=== PATIENT | male | born 1980 | race Caucasian/White ===

== ENCOUNTER 2018-06-29 11:55 | Outpatient (CLI) | payer MEDICAID, SELFPAY ==
[2018-06-29] MEDS: Omnipaque 350 MG/ML 50 ML BTL IJ (12:25)
[2018-06-29] MEDS: Breeza Beverage 473 ML BTL PO ×2 (12:26)
[2018-06-29 13:08] LABS: HCT 43.8 % (40.0-50.0); HGB 14.1 g/dL (13.5-17.5); Mean Corp. HGB Concentration 32.2 g/dL (32.0-36.0); Mean Corpuscular Hemoglobin 29.9 pg (27.0-33.0); Mean Corpuscular Volume 92.8 fL (80-95); Mean Platelet Volume 9.5 fL (8.0-11.0); Platelet Count 218 x1000/uL (130-400); RBC 4.72 m/cumm (4.50-6.00); RBC Distribution Width 12.8 % (11.8-14.1); White Blood Cell Count 5.95 k/cumm (4.4-10.8)
[2018-06-29 13:14] LABS: ALT 39 U/L (12-78); AST 21 U/L (15-37); Alkaline Phosphatase 88 U/L (46-116); Anion Gap 9.2 mmol/L (3-11); BUN 19 mg/dL (7-18); Bilirubin, Total 0.4 mg/dL (0.2-1.0); CO2 28.8 mmol/L (21.0-32.0); CREATININE 1.12 mg/dL (0.70-1.30); Calcium 8.9 mg/dL (8.5-10.1); Chloride 101 mmol/L (98-107); Glucose 96 mg/dL (70-100); Potassium 4.1 mmol/L (3.5-5.1); Sodium 139 mmol/L (136-145)
[2018-06-29] MEDS: Omnipaque 350 MG/ML 100 ML BTL IJ (13:38)
[2018-06-29] MEDS: Normal Saline Flush 10 ML SYR IVP (13:40)
--- NOTE | 2018-06-29 13:40 | DI.CT_ITS ---
SYMPTOMS/DIAGNOSIS: RIGHT LOWER QUADRANT ABDOMINAL PAIN, R10.31, ? APPENDICITIS CT SCAN OF THE ABDOMEN AND PELVIS: CT scan of the abdomen and pelvis was performed following the uneventful administration of intravenous and oral contrast material. There are no priors for comparison. The lung bases are clear. The liver is normal in size. No suspicious hepatic masses seen. The portal, superior mesenteric and splenic veins are patent. The gallbladder is negative. There is no biliary ductal dilatation. The pancreas, spleen and adrenal glands are unremarkable, as are the kidneys, ureters and bladder. Reproductive organs are unremarkable. The bowel shows no evidence of obstruction or inflammation. There is no evidence of an acute appendicitis present. The abdominal aorta is of normal caliber. No significant abdominal or pelvic adenopathy, ascites or pneumoperitoneum is present. There is unilateral spondylolysis at L4. No significant spondylolisthesis is seen. IMPRESSION: No evidence of an acute abdomen. No findings to suggest an acute appendicitis.
== END 2018-06-29 12:15 ==
PROVIDERS: PCP Physician Assistant Medical; Visit Provider Physician Assistant Medical
DX: R10.31 Right lower quadrant pain (principal)
CPT/HCPCS: 80053; 85027; 74177; J3490; Q9967

== ENCOUNTER 2018-07-15 20:10 | Emergency (ER) | payer MEDICAID, SELFPAY ==
[2018-07-15 20:13] VITALS: BP 140/89; PULSE 76; RESP 17; TEMP 36.8; O2SAT 97
--- NOTE | 2018-07-15 20:25 | ED.GENADUL_ITS ---
Discharge Plan Disposition Patient Disposition: HOME Condition: Stable Discharge Details Chief Complaint: Sorethroat Clinical Impression: Acute sore throat Primary Care Provider: Dixon Sewell V ED Provider: Adrian Franco Home Meds and New Rx's Prescriptions: No Action methadone 10 mg/mL Concentrate 100 mg PO DAILY RF: 0 Discharge Instructions Additional Instructions: follow up with your primary care provider this week if symptoms continue if you have inability to swallow liquids or difficulty breathing return to the emergency department for reevaluation you can take 1000mg tylenol and 600mg ibuprofen every 6 hours for pain as needed Medical Decision Making Pt states that this morning he started with a sore throat and feeling itching in his ears, no fevers or other symptoms. He is speaking in full sentences on exam swallowing normally with no stridor or drooling. 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 Will check for strep though I suspect symptoms are either viral or seasonal allergies. HAs normal ear exam bilaterally strep negative, will d/c and return precautions given Differential Diagnosis allergies, strep HPI General Mode of arrival: ambulatory . Date/Time Provider Initiated Documentation: 07/15/18 20:18 . Limitations to Documentation: no limitations . Information obtained by: patient . History of Present Illness 38 year old M presents to the emergency department with the chief complaint of sore throat, described as mild, Quality is described as aching, and is localized to the mouth (throat). Patient started experiencing this day(s) (1) and it has been constant. No relieving factors improve symptom(s), No exacerbating factors reported . Patient did receive the following treatments prior to arrival, none Related Data Home Medications Medication Instructions Recorded Confirmed methadone 100 mg PO DAILY 07/15/18 07/15/18 Allergies Allergy/AdvReac Type Severity Reaction Status Date / Time codeine Allergy Itching Unverified 07/15/18 20:17 General Stated Complaint: Sorethroat TERRY: 4 Review of Systems Review of Systems All systems reviewed & are unremarkable except as noted in HPI and below Constitutional Denies chills, Denies fever(s) and Denies weakness Cardiovascular Denies chest pain and Denies dyspnea Respiratory Denies cough and Denies dyspnea Gastrointestinal Denies abdominal pain, Denies nausea and Denies vomiting Integumentary/Breasts Denies rash Neurologic Denies weakness Endocrine Denies cold intolerance and Denies heat intolerance PFSH Social History Smoking/Tobacco Use Status: Current every day Tobacco Type: e-cigarettes Alcohol Intake: current Alcohol Intake frequency: a few times a week Alcohol type: other Drug use: Never Do you feel safe at home: Yes Do you feel safe in your relationship?: Yes Exam Const General: no acute distress Orientation: alert HENMT Head: normal to inspection Ears: external ears normal General nose exam: external nose normal Mouth: moist mucous membranes Eyes General: appearance normal, both eyes and all related structures Neck Neck: normal visual inspection Resp Effort & Inspection: normal respiratory effort and able to speak in complete sentences Cardio Rate: regular rate Skin General skin exam: no rashes or lesions noted Neuro General: alert and oriented x3 Extrem General: normal to inspection Psych Mental Status: mental status grossly normal Course Vital Signs Temperature 36.8 C 07/15/18 20:13 Pulse 76 07/15/18 20:13 Respiratory Rate 17 07/15/18 20:13 Blood Pressure 140/89 07/15/18 20:13 Pulse Oximetry 97 07/15/18 20:13 Temperature 36.8 C 07/15/18 20:13 Temperature Source Skin 07/15/18 20:13 Pulse 76 07/15/18 20:13 Respiratory Rate 17 07/15/18 20:13 Respiratory Effort Non-Labored 07/15/18 20:16 Blood Pressure 140/89 07/15/18 20:13 Blood Pressure Position Sitting 07/15/18 20:13 Pulse Oximetry 97 07/15/18 20:13 Oxygen Delivery Method Room Air 07/15/18 20:13 Oxygen Flow Rate 0 07/15/18 20:13 Pain Level 2 07/15/18 20:13
== END 2018-07-15 20:36 | disposition home or self-care (01) ==
PROVIDERS: Emergency Provider Emergency Medicine; PCP Physician Assistant Medical
DX: J02.9 Acute pharyngitis, unspecified (principal); F17.210 Nicotine dependence, cigarettes, uncomplicated
CPT/HCPCS: 87880; 99282

== ENCOUNTER 2018-07-17 12:46 | Emergency (ER) | payer MEDICAID, SELFPAY ==
[2018-07-17 13:01] VITALS: BP 121/72; PULSE 77; RESP 12; TEMP 36.6; O2SAT 97
--- NOTE | 2018-07-17 14:04 | W.ED.GENAD ---
Discharge Plan Disposition Patient Disposition: HOME Discharge Details Chief Complaint: Sorethroat Primary Care Provider: Dixon Sewell V ED Provider: Carlos Eduardo Matthews Home Meds and New Rx's Prescriptions: New amoxicillin 500 mg capsule 500 mg PO BID 10 Days Qty: 20 RF: 0 Continued methadone 10 mg/mL Concentrate 100 mg PO DAILY RF: 0 Discharge Data Discharge Date/Time-TO BE ENTERED AT DEPARTURE: 07/17/18 14:14 Medical Decision Making Sore throat 3 days not improving. Trying [id number] medications. Physical exam shows significantly erythematous oropharynx and anterior cervical lymphadenopathy otherwise no nasal congestion no cough clear lung sounds no other physical exam findings noted. 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 Rapid strep testing shows positive result. Patient placed on amoxicillin twice daily for 10 days and return precautions were discussed. After discussion of diagnosis and plan of care patient has no further needs, questions, or concerns and states clear understanding to return to the emergency department for any worsening symptoms. HPI General Mode of arrival: ambulatory. Date/Time Provider Initiated Documentation: 07/17/18 14:04. Limitations to Documentation: no limitations. Information obtained by: patient, RN notes reviewed and old records reviewed. History of Present Illness 38 year old M presents to the emergency department with the chief complaint of sore throat , described as moderate, with intensity rated at 7. Quality is described as aching, and is localized to the mouth (sore throat). Patient started experiencing this day(s) (3) and it has been constant. No relieving factors improve symptom(s), Patient did receive the following treatments prior to arrival, NSAID Related Data Home Medications Medication Instructions Recorded Confirmed methadone 100 mg PO DAILY 07/15/18 07/17/18 amoxicillin 500 mg PO BID 10 Days #20 cap 07/17/18 Previous Rx's Medication Instructions Recorded amoxicillin 500 mg PO BID 10 Days #20 cap 07/17/18 Allergies Allergy/AdvReac Type Severity Reaction Status Date / Time codeine Allergy Itching Unverified 07/17/18 13:04 General Stated Complaint: Sorethroat TERRY: 4 Review of Systems Constitutional Reports chills, Reports fever(s), Denies headache(s) and Reports malaise ENT Denies change in voice, Denies dysphagia, Denies otalgia, Denies headache(s), Denies hoarseness, Denies lip swelling, Denies mouth lesions, Reports nasal congestion, Reports odynophagia, Reports sore throat, Denies throat swelling and Denies tongue swelling Cardiovascular Denies chest pain Respiratory Denies chest congestion and Denies cough Gastrointestinal Denies dysphagia and Reports odynophagia Neurologic Denies headache(s) Allergic/Immunologic Denies lip swelling, Denies throat swelling and Denies tongue swelling PFS Social History Smoking/Tobacco Use Status: Current every day Tobacco Type: e-cigarettes Alcohol Intake: current Alcohol Intake frequency: a few times a week Alcohol type: other Drug use: Never Do you feel safe at home: Yes Do you feel safe in your relationship?: Yes Exam Const General: cooperative, healthy appearing, comfortable, no acute distress and not ill appearing Orientation: alert, awake and oriented x3 HENMT Head: normal to inspection and normocephalic Ears: hearing grossly normal bilaterally, external ears normal, TM's normal bilaterally and mastoids normal General nose exam: external nose normal and nares normal Face and sinus: normal facial exam and sinuses nontender Mouth: oral mucosae normal, lip normal, tongue normal, no audible dysphonia, no drooling and no trismus Throat: uvula midline, abnormal tonsil bilaterally erythema and hypertrophy 1+, no peritonsillar masses and posterior oropharynx abnormal erythema Neck Neck: normal visual inspection, full ROM, no meningeal signs and lymphadenopathy (Anterior cervical) Resp Effort & Inspection: normal respiratory effort, able to speak in complete sentences and no stridor Auscultation: clear to auscultation bilaterally Cardio Rate: regular rate Rhythm: regular rhythm Heart Sounds: S1 normal and S2 normal Skin General skin exam: no rashes or lesions noted Course Vital Signs Temperature 36.6 C 07/17/18 13:01 Pulse 77 07/17/18 13:01 Respiratory Rate 12 07/17/18 13:01 Blood Pressure 121/72 07/17/18 13:01 Pulse Oximetry 97 07/17/18 13:01 Temperature 36.6 C 07/17/18 13:01 Temperature Source Temporal Artery Scan 07/17/18 13:01 Pulse 77 07/17/18 13:01 Respiratory Rate 12 07/17/18 13:01 Respiratory Effort Non-Labored 07/17/18 13:03 Blood Pressure 121/72 07/17/18 13:01 Blood Pressure Position Sitting 07/17/18 13:01 Pulse Oximetry 97 07/17/18 13:01 Oxygen Delivery Method Room Air 07/17/18 13:01 Oxygen Flow Rate 0 07/17/18 13:01 Pain Level 7 07/17/18 13:01 Lab/Test Results Lab/Test Results: POC Strep Test-[facility](Rapid) Start: 07/17/18 13:05 Freq: Status: Active Protocol: Document 07/17/18 13:41 TB (Rec: 07/17/18 13:41 TB [id number]) Strep test-[facility](Rapid)-POC POC-Strep test-[facility] (Rapid) Positive POC-Strep test-[facility] (Rapid) Positive
[2018-07-17] MEDS: Amoxicillin 500 MG CAP PO (14:06)
--- NOTE | 2018-07-17 14:07 | ED.GENADUL_ITS ---
Discharge Plan Disposition Patient Disposition: HOME Discharge Details Chief Complaint: Sorethroat Primary Care Provider: Dixon Sewell V ED Provider: Carlos Eduardo Matthews Home Meds and New Rx's Prescriptions: New amoxicillin 500 mg capsule 500 mg PO BID 10 Days Qty: 20 RF: 0 Continued methadone 10 mg/mL Concentrate 100 mg PO DAILY RF: 0 Discharge Data Discharge Date/Time-TO BE ENTERED AT DEPARTURE: 07/17/18 14:14 Medical Decision Making Sore throat 3 days not improving. Trying dxsl-uus-kuttydy medications. Physica l exam shows significantly erythematous oropharynx and anterior cervical lymphadenopathy otherwise no nasal congestion no cough clear lung sounds no other physical exam findings noted. I do feel that this may be streptococcal in nature and [employer] plans staff officer initiated protocol for rapid strep testing. Rapid strep testing shows positive result. Patient placed on amoxicillin twice daily for 10 days and return precautions were discussed. After discussion of diagnosis and plan of care patient has no further needs, questions, or concerns and states clear understanding to return to the emergency department for any worsening symptoms. HPI General Mode of arrival: ambulatory . Date/Time Provider Initiated Documentation: 07/17/18 14:04 . Limitations to Documentation: no limitations . Information obtained by: patient, RN notes reviewed and old records reviewed . History of Present Illness 38 year old M presents to the emergency department with the chief complaint of sore throat , described as moderate, with intensity rated at 7. Quality is described as aching, and is localized to the mouth (sore throat). Patient started experiencing this day(s) (3) and it has been constant. No relieving factors improve symptom(s), Patient did receive the following treatments prior to arrival, NSAID Related Data Home Medications Medication Instructions Recorded Confirmed methadone 100 mg PO DAILY 07/15/18 07/17/18 amoxicillin 500 mg PO BID 10 Days #20 cap 07/17/18 Previous Rx's Medication Instructions Recorded amoxicillin 500 mg PO BID 10 Days #20 cap 07/17/18 Allergies Allergy/AdvReac Type Severity Reaction Status Date / Time codeine Allergy Itching Unverified 07/17/18 13:04 General Stated Complaint: Sorethroat TERRY: 4 Review of Systems Constitutional Reports chills, Reports fever(s), Denies headache(s) and Reports malaise ENT Denies change in voice, Denies dysphagia, Denies otalgia, Denies headache(s), Denies hoarseness, Denies lip swelling, Denies mouth lesions, Reports nasal congestion, Reports odynophagia, Reports sore throat, Denies throat swelling and Denies tongue swelling Cardiovascular Denies chest pain Respiratory Denies chest congestion and Denies cough Gastrointestinal Denies dysphagia and Reports odynophagia Neurologic Denies headache(s) Allergic/Immunologic Denies lip swelling, Denies throat swelling and Denies tongue swelling COUNT INCLUDES THE [facility] Social History Smoking/Tobacco Use Status: Current every day Tobacco Type: e-cigarettes Alcohol Intake: current Alcohol Intake frequency: a few times a week Alcohol type: other Drug use: Never Do you feel safe at home: Yes Do you feel safe in your relationship?: Yes Exam Const General: cooperative, healthy appearing, comfortable, no acute distress and not ill appearing Orientation: alert, awake and oriented x3 HENMT Head: normal to inspection and normocephalic Ears: hearing grossly normal bilaterally, external ears normal, TM's normal bilaterally and mastoids normal General nose exam: external nose normal and nares normal Face and sinus: normal facial exam and sinuses nontender Mouth: oral mucosae normal, lip normal, tongue normal, no audible dysphonia, no drooling and no trismus Throat: uvula midline, abnormal tonsil bilaterally erythema and hypertrophy 1+, no peritonsillar masses and posterior oropharynx abnormal erythema Neck Neck: normal visual inspection, full ROM, no meningeal signs and lymphadenopathy (Anterior cervical) Resp Effort & Inspection: normal respiratory effort, able to speak in complete sentences and no stridor Auscultation: clear to auscultation bilaterally Cardio Rate: regular rate Rhythm: regular rhythm Heart Sounds: S1 normal and S2 normal Skin General skin exam: no rashes or lesions noted Course Vital Signs Temperature 36.6 C 07/17/18 13:01 Pulse 77 07/17/18 13:01 Respiratory Rate 12 07/17/18 13:01 Blood Pressure 121/72 07/17/18 13:01 Pulse Oximetry 97 07/17/18 13:01 Temperature 36.6 C 07/17/18 13:01 Temperature Source Temporal Artery Scan 07/17/18 13:01 Pulse 77 07/17/18 13:01 Respiratory Rate 12 07/17/18 13:01 Respiratory Effort Non-Labored 07/17/18 13:03 Blood Pressure 121/72 07/17/18 13:01 Blood Pressure Position Sitting 07/17/18 13:01 Pulse Oximetry 97 07/17/18 13:01 Oxygen Delivery Method Room Air 07/17/18 13:01 Oxygen Flow Rate 0 07/17/18 13:01 Pain Level 7 07/17/18 13:01 Lab/Test Results Lab/Test Results: POC Strep Test-[facility](Rapid) Start: 07/17/18 13:05 Freq: Status: Active Protocol: Document 07/17/18 13:41 TB (Rec: 07/17/18 13:41 TB [id number]) Strep test-[facility](Rapid)-POC POC-Strep test-[facility] (Rapid) Positive POC-Strep test-[facility] (Rapid) Positive
== END 2018-07-17 14:14 | disposition home or self-care (01) ==
PROVIDERS: Emergency Provider Nurse Practitioner Family; PCP Physician Assistant Medical
DX: J02.0 Streptococcal pharyngitis (principal); F17.210 Nicotine dependence, cigarettes, uncomplicated
CPT/HCPCS: 87880; 99283

== ENCOUNTER 2019-03-13 12:05 | Outpatient (CLI) | payer SELFPAY ==
--- NOTE | 2019-03-13 12:06 | DI.RAD_ITS ---
EXAM: XR CHEST 2V PA LATERAL XR CHEST 2V PA LATERAL CLINICAL HISTORY: CHEST WALL PAIN R07.89 CHEST WALL PAIN R07.89 TECHNIQUE: 2D digital imaging was performed. COMPARISON: CHEST 2 VIEWS PA,LAT from 02/28/2016 FINDINGS: The heart is not enlarged. The lungs are clear and well expanded. No pleural effusion seen. Mediastin al contours appear intact. IMPRESSION: Normal chest
[2019-03-13 12:59] LABS: Anion Gap 9.4 mmol/L (3-11); BUN 17 mg/dL (7-18); CO2 28.6 mmol/L (21.0-32.0); CREATININE 1.07 mg/dL (0.70-1.30); Chloride 102 mmol/L (98-107); Glucose 90 mg/dL (74-106); Potassium 4.3 mmol/L (3.5-5.1); Sodium 140 mmol/L (136-145); Troponin I < 0.05 ng/Ml (<0.06)
== END 2019-03-13 12:25 ==
PROVIDERS: PCP Physician Assistant Medical; Visit Provider Nurse Practitioner Family
DX: R07.89 Other chest pain (principal)
CPT/HCPCS: 36415; 80048; 71046; 84484

== ENCOUNTER 2020-07-23 16:10 | Emergency (ER) | payer SELFPAY ==
[2020-07-23 16:14] VITALS: BP 126/105; PULSE 68; RESP 18; TEMP 37.4; O2SAT 96
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
[2020-07-23 17:04] LABS: Abs Immature Grans 0.02 10^3/uL (0.0-0.06); Absolute Basophil Count 0.02 10^3/uL (0.0-0.2); Absolute Eosinophil Count 0.07 10^3/uL (0.0-0.7); Absolute Lymphocyte Count 1.91 10^3/uL (1.2-3.4); Absolute Neutrophil Count 2.77 10^3/uL (1.2-6.7); Basophils % 0.4; Eosinophils % 1.3; HCT 41.8 % (40.0-50.0); HGB 14.1 g/dL (13.5-17.5); Immature Grans % 0.4; Lymphocytes % 36.8; MCH 32.6 pg (27.0-33.0); MCHC 33.7 % (32.0-36.0); MCV 96.5 fL (80-95); MPV 9.4 fL (8.0-11.0); Monocytes % 7.7; Neutrophils % 53.4; Nucleated RBC 0 %; Platelet Count 198 10^3/uL (130-400); RBC 4.33 10^6/uL (4.36-5.78); RDW 12.4 % (11.8-14.1); RDW-SD 43.1 fL; WBC 5.19 10^3/uL (4.4-10.8)
[2020-07-23 17:14] LABS: ALT 125 U/L (16-63); AST 49 U/L (15-37); Alkaline Phosphatase 133 U/L (46-116); Anion Gap 10.8 mmol/L (3-11); BUN 16 mg/dL (7-18); Bilirubin, Total 0.2 mg/dL (0.2-1.0); CO2 28.2 mmol/L (21.0-32.0); CREATININE 1.2 mg/dL (0.70-1.30); Calcium 9.5 mg/dL (8.5-10.1); Chloride 103 mmol/L (98-107); Glucose 115 mg/dL (74-106); Lipase 79 U/L (73-393); Sodium 142 mmol/L (136-145)
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
[2020-07-23 17:21] LABS: Bilirubin Negative (Negative); Blood Negative (Negative); Clarity Clear (Clear); Glucose Negative (Negative); Ketones Negative (Negative); Leukocyte Esterase Negative (Negative); Nitrite Negative (Negative); Specific Gravity >= 1.030 (1.005-1.025)
[2020-07-23 17:44] VITALS: BP 126/105; PULSE 68; RESP 18; TEMP 37.4; O2SAT 96
== END 2020-07-23 17:43 | disposition home or self-care (01) ==
PROVIDERS: Emergency Provider Physician Assistant; PCP Physician Assistant Medical
DX: R07.82 Intercostal pain (principal); R74.01 Elevation of levels of liver transaminase levels; R74.8 Abnormal levels of other serum enzymes
CPT/HCPCS: 36415; 80053; 83690; 99284; 71046; 71100; 81003; 85025

== ENCOUNTER 2022-04-20 17:17 | Outpatient (REF) | payer MEDICAID, SELFPAY ==
[2022-04-20 19:15] LABS: ALT 71 U/L (16-63); AST 35 U/L (15-37); Albumin 4.3 g/dL (3.4-5.0); Alkaline Phosphatase 94 U/L (46-116); Anion Gap 10.3 mmol/L (3-11); BUN 18 mg/dL (7-18); Bilirubin, Total 0.2 mg/dL (0.2-1.0); CO2 28.7 mmol/L (21.0-32.0); CREATININE 1.1 mg/dL (0.70-1.30); Calcium 9.8 mg/dL (8.5-10.1); Calculated LDL 121 mg/dL (<100); Chloride 104 mmol/L (98-107); Cholesterol 227 mg/dL (<200); Estimated GFR 85.95 (mL/min/1.73m2); Glucose 113 mg/dL (74-106); HDL Cholesterol 54 mg/dL (40-60); Potassium 4.2 mmol/L (3.5-5.1); Sodium 143 mmol/L (136-145); Total Protein 8.3 g/dL (6.4-8.2); Triglyceride 264 mg/dL (<150)
== END 2022-04-20 17:18 | disposition home or self-care (01) ==
LOC: NCHCN 17:17
PROVIDERS: PCP Physician Assistant Medical; Visit Provider Nurse Practitioner Family
DX: I10 Essential (primary) hypertension (principal); R94.5 Abnormal results of liver function studies
CPT/HCPCS: 80053; 80061

== ENCOUNTER 2022-06-17 02:13 | Inpatient (IN) | payer MEDICAID, SELFPAY ==
--- NOTE | 2022-06-17 | DI.MRI_ITS ---
Exam(s) MR ABDOMEN WO EXAM: MR ABDOMEN WO CLINICAL HISTORY: abdominal pain; pancreatitis TECHNIQUE: Multiplanar multisequence MRI of the Abdomen was performed. MRCP sequences also performed. COMPARISON: CT CT ABDOMEN PELVIS W from 06/17/2022 FINDINGS: Lung bases: Patchy infiltrates now seen in right lower and middle lobes. Left lung appears clear. T race right pleural effusion. Liver: Unremarkable. Gallbladder: Unremarkable. No evidence of stones or wall thickening. Bile Ducts: Unremarkable. Pancreas: Mild fullness and mild edema in the head of the pancreas. No surrounding fluid. No eviden ce of a mass. A large amount of fat is interspersed within the pancreas. No pancreatic ductal dilat ation. Adrenals: Unremarkable. Kidneys: Unremarkable. Spleen: Unremarkable. Aorta: Unremarkable. Soft Tissues: Unremarkable. Bone: Unremarkable. Lymph Nodes: Unremarkable. Mesentery: No ascites. No focal fluid collection. Bowel: No abnormal dilatation or wall thickening. IMPRESSION: Mild swelling and edema of the pancreatic head. No pancreatic ductal dilatation or evidence of mass or cyst. Normal MRCP. Infiltrates now present in right lower and middle lobes. DATA REPOSITORY:
--- NOTE | 2022-06-17 02:15 | DI.CT_ITS ---
Exam(s) CT ABDOMEN PELVIS W EXAM: CT ABDOMEN PELVIS W CLINICAL HISTORY: central abdominal pain, eval for appe, tics. TECHNIQUE: Imaging Protocol: Axial computed tomography images with coronal and sagittal reformatted images were created and reviewed CONTRAST MATERIAL: Intravenous: Omnipaque 350 Contrast volume:100 ml Oral: yes / no COMPARISON: CT CT ABDOMEN PELVIS W from 06/29/2018 FINDINGS: ABDOMEN: Lung Bases: Normal where visualized. Liver: Normal density. No measurable mass. Gallbladder and biliary tract: No radiodense calculus or dilation. Pancreas: Inflammation around the head of the pancreas. No pancreatic ductal dilatation. No evidenc e of mass. No pseudocyst. Spleen: Normal. Kidneys: Normal size, contour and axis. No radiodense stones or obstructive uropathy. No suspicious m asses seen. Adrenal glands: No masses seen. Abdominal Aorta: Abdominal portion non-dilated. Soft tissues: Unremarkable. PELVIS: Bladder: No gross wall thickening. No calculi.No focal mass. Bowel: No obstruction. No bowel wall thickening. Appendix normal. Peritoneal cavity: No ascites or focal collection. Bones: Within normal limits for age. Reproductive organs: Within normal limits. Lymph nodes: Unremarkable. Impression: Uncomplicated pancreatitis involving the pancreatic head. RADIATION DOSE DELIVERED: 1,397.87mGy.cm Total DLP DATA REPOSITORY: All CT scans at this facility are submitted to the National Radiology Data Registry (NRDR) Dose Index Registry (DIR) with the [employer] (A[employer]). RADIATION OPTIMIZATION: All CT scans at this facility use at least one of these dose optimization te chniques: automated exposure control; mA and/or kV adjustment per patient size (includes targeted exa ms where dose is matched to clinical indication); or iterative reconstruction.
[2022-06-17 02:16] VITALS: BP 164/99; PULSE 88; RESP 17; TEMP 38.3; O2SAT 99
--- NOTE | 2022-06-17 02:31 | W.ED.GENAD ---
Discharge Plan Disposition Patient Disposition: Admit to [facility] Condition: Good Discharge Details Chief Complaint: Abd Prob Clinical Impression: Acute pancreatitis Primary Care Provider: Dixon Sewell V ED Provider: Sandro Franz Home Meds and New Rx's Prescriptions: No Action methadone 10 mg/mL Concentrate 80 mg PO DAILY lisinopril 10 mg Tablet 10 mg PO DAILY Medical Decision Making This is a 41-year-old male with a past medical history of regular alcohol use described as 5 beers a day use, methadone use, hypertension, who presents today for abdominal pain. Patient states that the pain started about 30 to 40 hours ago, it is aching in nature and in the center of his abdomen. He describes it as he feels like he is getting kicked in the center of his gut. He denies any urinary changes, any vomiting, or diarrhea. He does admit to fever and chills which began tonight. He denies any new medications. He denies any trauma. No prior abdominal surgeries. Pain is made worse with movement and palpation. It appears to be improved by nothing. No other complaints at this time. No other modifying factors. Patient does state that he drinks 8-9 beers per night on a nightly basis. He denies any history of DTs or withdrawal. The patient's physical exam demonstrates a slightly guarded male, tenderness in the mid abdominal region on palpation. Distal pulses are intact. No rebound. Mild guarding. Testicular exam demonstrates normal male testicles, no evidence of testicular torsion. Genital exam unremarkable. Differential includes kidney stone, appendicitis or diverticulitis. Potential for perforated ulcer is also on the differential but less likely by his clinical history. Patient does have a fever, we will get blood cultures, monitor closely and reassess. 4:52 AM Laboratory work-up has returned, no white count or bandemia. There is a mild left shift. Electrolytes stable, lactate elevated at 1.7. AST and ALT mildly elevated. Lipase normal. Alcohol level negative. At this time he does not show any clinical evidence of withdrawal. CT scan shows notable evidence of acute edematous pancreatitis. No evidence of free air, or other acute process per radiology. Patient on reassessment clinically feels improved, but still has mild pain. With the patient's fever, the evidence of the edematous pancreatitis, this does certainly increase my clinical concern. COVID flu and RSV are all negative. Patient has not yet urinated here. However his symptoms appear most concerning for edematous pancreatitis being the cause of his mild fever. We will start Zosyn for treatment. [place] score is low at this time, however I am concerned that he could certainly escalate in the next 12 to 24 hours with the presence of his fever and the CT scan findings. I do feel that admission is appropriate in this setting for continued observation. We will continue to give IV fluids. We have given him his morning methadone dose. Discussed the case with the hospitalist Dr. Campbell. He agrees with the plan. I will place admission orders on his behalf at his request. I have extensively reviewed the treatment plan with the patient. I have addressed all patient concerns at this time. I have also discussed the plan with the admitting physician and they agree with the current assessment and plan and have agreed to assume responsibility for the patient. All parties demonstrate verbal understanding and agreement with our assessment and plan at this time. The documentation in this chart was dictated using [employer] dictation software. Please excuse any dictation errors. FINDINGS: Lungs: Visualized lung bases are clear. No pleural effusions. Liver: Unremarkable. Gallbladder and bile ducts: Unremarkable. No calcified gallstones. No intrahepatic or extrahepatic biliary ductal dilation. Pancreas: There is inflammatory fat stranding about the uncinate process and inferior head of the pancreas, consistent with acute edematous pancreatitis. The gland enhances normally. Spleen: Unremarkable. The spleen is normal in size. Adrenal glands: Unremarkable. Kidneys and ureters: No hydronephrosis or hydroureter. Normal and symmetric renal enhancement. No suspicious renal masses. Stomach and bowel: The stomach is nondilated. Small and large bowel are normal in caliber. No inflammatory changes are seen in the bowel. There is no evidence of diverticulitis. Appendix: A nondilated appendix is identified. Intraperitoneal space: Unremarkable. No ascites, fluid collection, or pneumoperitoneum. Retroperitoneal space: No retroperitoneal collection or mass. Vasculature: Unremarkable. The abdominal aorta is normal in caliber. Portal and splenic veins remain patent. Lymph nodes: No pathologically enlarged lymph nodes. Urinary bladder: Unremarkable. Reproductive: Unremarkable as visualized. Bones/joints: Degenerative changes. No suspicious osseous lesions. Soft tissues: Unremarkable. IMPRESSION: Findings consistent with acute edematous pancreatitis. Thank you for allowing us to participate in the care of your patient. Dictated and Authenticated by: Latha Hay MD 06/17/2022 4:02 AM Eastern Time ([place] & [place]) HPI General Date/Time Provider Initiated Documentation: 06/17/22 02:16. HPI Narrative: This is a 41-year-old male with a past medical history of regular alcohol use described as 5 beers a day use, methadone use, hypertension, who presents today for abdominal pain. Patient states that the pain started about 30 to 40 hours ago, it is aching in nature and in the center of his abdomen. He describes it as he feels like he is getting kicked in the center of his gut. He denies any urinary changes, any vomiting, or diarrhea. He does admit to fever and chills which began tonight. He denies any new medications. He denies any trauma. No prior abdominal surgeries. Pain is made worse with movement and palpation. It appears to be improved by nothing. No other complaints at this time. No other modifying factors. Related Data Home Medications Medication Instructions Recorded Confirmed methadone 10 mg/mL oral concentrate 80 mg PO DAILY 07/15/18 06/17/22 lisinopril 10 mg tablet 10 mg PO DAILY 06/17/22 06/17/22 Allergies Allergy/AdvReac Type Severity Reaction Status Date / Time codeine Allergy Itching Unverified 07/23/20 16:18 General Stated Complaint: Abd Prob TERRY: 3 Review of Systems All systems reviewed & are unremarkable except as noted in HPI and below PFSH All Active Problems (Updated 06/17/22 @ 04:55 by Sandro Franz DO) Chest wall pain (Acute) Elevated LFTs (Acute) Acute pancreatitis (Acute) Social History Smoking/Tobacco Use Status: Current every day Tobacco Type: e-cigarettes Smoking risk assessment performed?: Yes Alcohol Intake: current Alcohol Intake frequency: a few times a week Alcohol type: other Drug use: Never Do you feel safe at home: Yes Do you feel safe in your relationship?: Yes Exam Narrative Exam Narrative: 1.Const: Well-nourished, Well-developed, appearing stated age 2.Eyes: PERRL, no conjunctival injection, and symmetrical lids. 3.ENT: Atraumatic external nose and ears. Moist MM. Neck: Symmetric, trachea midline, No thyromegaly. 4.CVS: +S1/S2, No murmurs or gallops. Peripheral pulses 2+ and equal in all extremities. Brisk capillary refill in all extremities. Radial pulses +2 bilaterally, dorsalis pedis and posterior tibial pulses +2 bilaterally. 5.RESP: Unlabored respiratory effort. Clear to auscultation bilaterally. No wheezes rales or rhonchi 6.GI: Soft, nondistended. Mild voluntary guarding in the center of the abdomen. Mild to moderate tenderness on palpation of the mid abdominal region. Minimal tenderness on the lateral aspects. No focal tenderness at McBurney's point. Negative Calderon sign. 7.MSK: Normocephalic/Atraumatic, Extremities w/o deformity or ttp No cyanosis or clubbing, Normal movement of all extremities 8.Skin: Warm, Dry. No rashes or lesions. 9.Neuro: manager document control II-XII grossly intact. Sensation grossly intact, no focal neurologic deficits. 10.Psych: (AAO) x3. Appropriate mood and affect Course Vital Signs Vital signs: Vital Signs Temperature 38.3 C H 06/17/22 02:16 Pulse 88 06/17/22 02:16 Respiratory Rate 17 06/17/22 02:16 Blood Pressure 164/99 H 06/17/22 02:16 Pulse Oximetry 99 06/17/22 02:16 Temperature 38.3 C H 06/17/22 02:16 Temperature Source Oral 06/17/22 02:16 Pulse 88 06/17/22 02:16 Respiratory Rate 17 06/17/22 02:16 Respiratory Effort Normal, Non-Labored 06/17/22 02:23 Blood Pressure 164/99 H 06/17/22 02:16 Pulse Oximetry 99 06/17/22 02:16 Oxygen Delivery Method Room Air 06/17/22 02:16 Oxygen Flow Rate 0 06/17/22 02:16 Pain Level 9 06/17/22 02:16 PAWSS Have you Been Recently Intoxicated or Drunk Within the Last 30 days?: Yes Have you Ever Experienced Previous Episodes of Alcohol Withdrawal?: No Have you ever Experienced Withdrawal Seizures?: No Have you ever Experienced Delirium Tremens(DT)s?: No Have you ever undergone Alcohol Rehabilitation Treatment (i.e, inpt ot outpatient treatment programs)?: No Have you ever Experienced Blackouts?: No Have you ever Combined Alcohol with other Downers within the last 90 days?: No Have you ever Combined Alcohol with any other Substance of Abuse during the last 90 days?: No Positive Blood Alcohol level on Presentation? [PCS.BAL]: No Evidence of Increased Autonomic Activity (i.e. HR>120, tremor, sweating, agitation, nausea)?: No Result: 1
[2022-06-17] MEDS: Normal Saline Flush 10 ML SYR IVP (02:40)
[2022-06-17] MEDS: Normal Saline - Diluent 50 ML VIAL IJ (02:40)
[2022-06-17] MEDS: Omnipaque 350 MG/ML 100 ML BTL IJ (02:41)
[2022-06-17 02:50] LABS: Lactate 1.7 mmol/L (0.6-1.4)
[2022-06-17 02:55] LABS: Abs Immature Grans 0.04 10^3/uL (0.0-0.06); Absolute Basophil Count 0.02 10^3/uL (0.0-0.2); Absolute Eosinophil Count 0.08 10^3/uL (0.0-0.7); Absolute Lymphocyte Count 1.75 10^3/uL (1.2-3.4); Absolute Monocyte Count 0.68 10^3/uL (0.1-0.8); Absolute Neutrophil Count 7.32 10^3/uL (1.2-6.7); Basophils % 0.2; Eosinophils % 0.8; HCT 41.5 % (40.0-50.0); Immature Grans % 0.4; Lymphocytes % 17.7; MCH 31.9 pg (27.0-33.0); MCHC 33.7 % (32.0-36.0); MCV 95 fL (80-95); MPV 10.5 fL (8.0-11.0); Monocytes % 6.9; RBC 4.39 10^6/uL (4.36-5.78); RDW 12.2 % (11.8-14.1); RDW-SD 42.4 fL; WBC 9.89 10^3/uL (4.4-10.8)
[2022-06-17 02:56] LABS: Diff Comment PLT Morph Reviewed; RBC Morphology Normal
[2022-06-17] MEDS: Ketorolac 30 MG/ML VIAL IVP ×2 (03:09→11:50)
[2022-06-17] MEDS: Normal Saline 500 ML IV (03:09)
[2022-06-17] MEDS: ACETAMINOPHEN 1,000 MG/100 ML BTL 400 MG IVPB ×3 (03:09→20:35)
[2022-06-17 03:16] LABS: ALT 86 U/L (16-63); AST 45 U/L (15-37); Albumin 4.1 g/dL (3.4-5.0); Alkaline Phosphatase 103 U/L (46-116); BUN 16 mg/dL (7-18); Bilirubin, Total 0.7 mg/dL (0.2-1.0); Calcium 9.5 mg/dL (8.5-10.1); Chloride 101 mmol/L (98-107); Estimated GFR 96.37 (mL/min/1.73m2); Glucose 106 mg/dL (74-106); Lipase 47 U/L (16-77); Potassium 4.5 mmol/L (3.5-5.1); Sodium 137 mmol/L (136-145)
[2022-06-17 03:19] LABS: ETHANOL BLOOD < 3.0 mg/dL (<10)
[2022-06-17 03:29] LABS: COVID-19 PCR Negative (Negative); Influenza A PCR Negative (Negative); Influenza B PCR Negative (Negative); RSV PCR Negative (Negative)
[2022-06-17 03:39] LABS: Source Nasopharynx
--- NOTE | 2022-06-17 04:02 | DI.VRAD_ITS ---
PROCEDURE INFORMATION: Exam: CT Abdomen And Pelvis With Contrast Exam date and time: 06/17/2022 2:51 AM Age: 41 years old Clinical indication: Periumbilical; Patient HX: Central abdominal pain, eval for appe, tics TECHNIQUE: Imaging protocol: Computed tomography of the abdomen and pelvis with contrast. Radiation optimization: All CT scans at this facility use at least one of these dose optimization techniques: automated exposure control; mA and/or kV adjustment per patient size (includes targeted exams where dose is matched to clinical indication); or iterative reconstruction. Contrast material: OMNIPAQUE 350; Contrast volume: 100 ml; Contrast route: INTRAVENOUS (IV); COMPARISON: CT ABDOMEN PELVIS W 06/29/2018 1:31 PM FINDINGS: Lungs: Visualized lung bases are clear. No pleural effusions. Liver: Unremarkable. Gallbladder and bile ducts: Unremarkable. No calcified gallstones. No intrahepatic or extrahepatic biliary ductal dilation. Pancreas: There is inflammatory fat stranding about the uncinate process and inferior head of the pancreas, consistent with acute edematous pancreatitis. The gland enhances normally. Spleen: Unremarkable. The spleen is normal in size. Adrenal glands: Unremarkable. Kidneys and ureters: No hydronephrosis or hydroureter. Normal and symmetric renal enhancement. No suspicious renal masses. Stomach and bowel: The stomach is nondilated. Small and large bowel are normal in caliber. No inflammatory changes are seen in the bowel. There is no evidence of diverticulitis. Appendix: A nondilated appendix is identified. Intraperitoneal space: Unremarkable. No ascites, fluid collection, or pneumoperitoneum. Retroperitoneal space: No retroperitoneal collection or mass. Vasculature: Unremarkable. The abdominal aorta is normal in caliber. Portal and splenic veins remain patent. Lymph nodes: No pathologically enlarged lymph nodes. Urinary bladder: Unremarkable. Reproductive: Unremarkable as visualized. Bones/joints: Degenerative changes. No suspicious osseous lesions. Soft tissues: Unremarkable. IMPRESSION: Findings consistent with acute edematous pancreatitis. Dictated and Authenticated by: Latha Hay MD. Ordering:NATALIE Jo MD
[2022-06-17] MEDS: PIPERACILLIN/TAZO 4.5 GM in Normal Saline 100 ML IVPB (04:26)
[2022-06-17] MEDS: Methadone Liquid 10 MG/ML 80 MG PO (04:54)
[2022-06-17] MEDS: Normal Saline 1,000 ML 150 ML IV (05:38)
[2022-06-17 05:42] VITALS: BP 127/79; PULSE 57; RESP 20; TEMP 37; O2SAT 97
--- NOTE | 2022-06-17 05:49 | HPE_ITS ---
Date of service: 06/17/22 Time of Service: 05:49 Assessment and Plan Assessment and plan (1) Acute pancreatitis: Status: Acute Assessment and plan: His pain is consistent with pancreatitis clinically and his CT is highly suggestive, despite the normal lipase, so I agree with the diagnosis of acute pa ncreatitis. He does not have signs of severe pacreatitis/SIRS yet other than fever. Blood culture pending, u/a pending. He did get a dose of piperacillin/tazobactam but I am not sure ongoing therapy warranted. Will discuss with day hospitalist but I am holding off for now. Will continue NPO with IV fluids, consider progressing diet when pain improving. He responded to IV ketoralac and APAP. Continue this. Can use opioids hydromorphone prn if this isn't sufficient and monitor for respiratory depression. Etiology appears alcoholic. There is no signs clinically or on CT of gall stone. Triglycerides not high, no trauma, no family history. Lisinopril is relatively new, can be associated with pancreatitis. Hold for now an consider changing this upon discharge. I don't think tick bite related as incubation period not sufficient, but if fevers continue without another clear cause I would consider doxycycline and a tick panel. (2) Alcohol use: Status: Acute Assessment and plan: He has high risk alcohol use, but no signs or history of withdrawl. I ordered a banana bag, but will hold off on CIWA protocol unless symptoms develop. He does endorse desire to stop, feels current drinking is social but agrees it is too much. We discussed risk of recurrent pancreatitis (3) Elevated LFTs: Status: Acute Assessment and plan: This is chronic. Likely alcohol related, but ALT is higher than ALT. I will order HCV/HBV screen, also HIV given I don't see a screen on record and h/o OUD. (4) Hypertension: Assessment and plan: Mildly elevated now, holding lisinopril. Can consider ARB or CCB as those may be less associated with pancreatitis than REYNALDO inhibitor, but I don't think this was the cause. (5) Opioid use disorder, moderate, in sustained remission, dependence: Assessment and plan: Continue home methadone. Recognize his tolerance may necessiate higher dosing of opioids if opioid pain medication needed. (6) Nicotine vapor product user: Status: Acute Assessment and plan: offer nicotrol prn (7) DVT prophylaxis: Status: Acute Assessment and plan: low risk, consider starting if stays here 2-3 days. (8) Discharge planning issues: Status: Acute Assessment and plan: stable currently, consider home once pain improving and progressing diet. History of Present Illness History of Present Illness Chief Complaint: abdominal pain Narrative: 41 yo M with opioid use disorder on methadone and daily high risk alcohol consumption presented with 1 day of progressive epigastric abdominal pain. He woke with a dull ache in the epigastrum the day prior to admission. Pain was mild at the time. He was able to eat normally and go to work. He takes omeprazole for heart burn and tried this but it didn't help. He last ate around 3:30, did not experience worsening pain or nausea after that. He had 4-5 hard ice tea alcoholic beverages, which is on the low end of his typical consumption. Around 8pm on the evening prior to admission, the pain started to get more sharp and severe. Some radiation to his mid back. Still not nausea or vomiting. He started feeling feverish and came in the the emergency room. He has no history of pancreatitis or episodes similar to this. He started lisinopril about 2 months ago, and is not taking other medications or suppluments other than methadone and omeprazole. He has had no trauma to the abdomen. He denies any recent illicit drug use, and has been stable on methadone (was started after OUD developed after hand amputation years ago). He has no history of withdrawl seizures or other alcohol withdrawl syndrome. He did pull a tick off his right side a day prior to the symptoms starting. He woke up with it. Not engorged, no rash. Review of Systems Constitutional Constitutional: Denies chills, Reports fever(s), Denies headache(s), Reports lethargy, Reports malaise and Denies weakness Eyes Eyes: Denies change in vision and Denies irritation ENT Ears, Nose, Mouth, and Throat: Denies dizziness, Denies headache(s), Denies nasa l congestion, Denies nasal discharge and Denies sore throat Cardiovascular Cardiovascular: Denies chest pain, Denies edema, Denies lightheadedness, Denies palpitations, Denies dyspnea and Denies orthopnea Respiratory Respiratory: Denies cough, Denies excessive phlegm production, Denies dyspnea and Denies wheezing Gastrointestinal Gastrointestinal: Denies melena, Denies hematochezia, Denies change in stool character, Denies constipation, Reports heartburn, Denies diarrhea and Denies vomiting Genitourinary Genitourinary: Denies hematuria, Denies dysuria and Denies urinary incontinence Musculoskeletal Musculoskeletal: Denies arthralgias and Denies joint swelling Integumentary/Breasts Skin/Breast: Denies rash and Denies skin ulcer Neurologic Neurologic: Denies dizziness, Denies headache(s), Denies sensory deficit and Denies weakness Psychiatric Psychiatric: Denies mood swings Endocrine Endocrine: Denies palpitations Hematologic/Lymphatic Hematologic/Lymphatic: Denies easy bleeding Allergic/Immunologic Allergic/Immunologic: Denies wheezing PFSH All Active Problems (Updated 06/17/22 @ 06:17 by Frank Akins) Discharge planning issues (Acute) DVT prophylaxis (Acute) Nicotine vapor product user (Acute) Alcohol use (Acute) Chest wall pain (Acute) Elevated LFTs (Acute) Acute pancreatitis (Acute) Medical History (Updated 06/17/22 @ 06:17 by Frank Akins) GERD (gastroesophageal reflux disease) Hypertension Opioid use disorder, moderate, in sustained remission, dependence Surgical History (Updated 06/17/22 @ 06:04 by Frank Akins) Status post amputation of finger of right hand Social History (Updated 06/17/22 @ 06:05 by Frank Akins) Smoking/Tobacco Use Status: Current every day Tobacco Type: e-cigarettes Smoking risk assessment performed?: Yes Alcohol Intake: current Alcohol Intake frequency: a few times a week Alcohol type: other Counseling provided: provider counseling and reduce to 2 or less/day Drug use: Never Do you feel safe at home: Yes Do you feel safe in your relationship?: Yes Additional Social history: Lives with fiance and daughter. Works at [employer] Meds Allergies and Home Medications Allergies Allergy/AdvReac Type Severity Reaction Status Date / Time codeine Allergy Itching Unverified 07/23/20 16:18 Home Medications Medication Instructions Recorded Confirmed Type methadone 10 mg/mL oral concentrate 80 mg PO DAILY 07/15/18 06/17/22 History lisinopril 10 mg tablet 10 mg PO DAILY 06/17/22 06/17/22 History Exam Narrative Exam Narrative: GEN: Alert and oriented, pleasant and cooperative, gives linear history. Sitti ng up in bed holding hand over epigastrum, but no acute distress at rest. HEENT: Head atraumatic. Conjunctiva clear, no icterus. PEERL, 4mm in room light (before methadone dose) EOMI. no rhinorrhea. MMM, OP benign. Neck is supple with no masses or lymphadenopathy, trachea midline LUNGS: CTAB with normal effort CV: RRR with no murmurs, gallops, or rubs. ABD: +BS, soft, tender in mid epigastrum, but no rebound or gaurding. no masses palpable. No RUQ pain, negative Murphies. EXT: no cyanosis, clubbing, or edema MSK: No joint redness or swelling NEURO: CN 2-12 grossly intact. Normal movement of 4 extremities. Normal speech and coordination. no tremors SKIN: No rashes or open wounds. 1mm scab right lateral abdomen but no surrounding rash. PSYCH: normal mood and affect Results Imaging Abdomen CT scan report/results: report reviewed (Findings consistent with acute edematous pancreatitis.) Labs 06/17/22 02:34 06/17/22 02:34 Labs: Laboratory Results - last 24 hr 06/17/22 06/17/22 06/17/22 02:34 02:34 02:34 WBC 9.89 RBC 4.39 Hgb 14.0 Hct 41.5 MCV 95 MCH 31.9 MCHC 33.7 RDW 12.2 Plt Count MPV 10.5 Immature Gran % 0.4 Neutrophils % 74.0 Lymphocytes % 17.7 Monocytes % 6.9 Eosinophils % 0.8 Basophils % 0.2 Nucleated RBC % 0.0 Absolute Neutrophils 7.32 H Absolute Lymphocytes 1.75 Absolute Monocytes 0.68 Absolute Eosinophils 0.08 Absolute Basophils 0.02 RBC Morphology Normal VBG Lactate 1.7 H Sodium 137 Potassium 4.5 Chloride 101 Carbon Dioxide 28.0 Anion Gap 8.0 BUN 16 Creatinine 1.0 Est GFR (CKD-EPI 2020) 96.37 Glucose 106 Calcium 9.5 Total Bilirubin 0.7 AST 45 H ALT 86 H Alkaline Phosphatase 103 Total Protein 8.0 Albumin 4.1 Lipase 47 Ethyl Alcohol < 3.0 COVID-19 Source SARS-CoV-2 (PCR) Influenza Type A (PCR) Influenza Type B (PCR) RSV (PCR) 06/17/22 02:44 WBC RBC Hgb Hct MCV MCH MCHC RDW Plt Count MPV Immature Gran % Neutrophils % Lymphocytes % Monocytes % Eosinophils % Basophils % Nucleated RBC % Absolute Neutrophils Absolute Lymphocytes Absolute Monocytes Absolute Eosinophils Absolute Basophils RBC Morphology VBG Lactate Sodium Potassium Chloride Carbon Dioxide Anion Gap BUN Creatinine Est GFR (CKD-EPI 2020) Glucose Calcium Total Bilirubin AST ALT Alkaline Phosphatase Total Protein Albumin Lipase Ethyl Alcohol COVID-19 Source Nasopharynx SARS-CoV-2 (PCR) Negative Influenza Type A (PCR) Negative Influenza Type B (PCR) Negative RSV (PCR) Negative Last Vital Signs Temp 37.0 C 06/17/22 05:42 Pulse 57 L 06/17/22 05:42 Resp 20 06/17/22 05:42 BP 127/79 06/17/22 05:42 Pulse Ox 97 06/17/22 05:42 PAWSS Have you Been Recently Intoxicated or Drunk Within the Last 30 days?: Yes Have you Ever Experienced Previous Episodes of Alcohol Withdrawal?: No Have you ever Experienced Withdrawal Seizures?: No Have you ever Experienced Delirium Tremens(DT)s?: No Have you ever undergone Alcohol Rehabilitation Treatment (i.e, inpt ot outpatient treatment programs)?: No Have you ever Experienced Blackouts?: No Have you ever Combined Alcohol with other Downers within the last 90 days?: No Have you ever Combined Alcohol with any other Substance of Abuse during the last 90 days?: No Positive Blood Alcohol level on Presentation? [PCS.BAL]: No Evidence of Increased Autonomic Activity (i.e. HR>120, tremor, sweating, agitation, nausea)?: No Result: 1 Time Spent Time spent with Patient: 55-74 minutes Time was spent: preparing to see the patient(eg.review tests), obtaining and/or reviewing separately otained hiistory, ordering medications,tests, procedures, referring, communicating with other health nursing care partner, indepentently interpreting results and counseling the patient
[2022-06-17 05:58] VITALS: BP 148/87; PULSE 66; RESP 18; TEMP 36.6; O2SAT 97
[2022-06-17 07:32] LABS: Bilirubin Negative (Negative); Blood Negative (Negative); Clarity Clear (Clear); Glucose Negative (Negative); Ketones Negative (Negative); Leukocyte Esterase Negative (Negative); Nitrite Negative (Negative); Urobilinogen 0.2 mg/dL (Up to 0.2)
[2022-06-17] MEDS: Pantoprazole 40 MG VIAL IVP ×2 (08:05→20:37)
[2022-06-17 09:56] LABS: *AMPHETAMINES SCREEN URINE Negative (Negative); *BARBITURATES SCREEN URINE Negative (Negative); *BENZODIAZEPINES SCREEN URINE Negative (Negative); Cannabinoids THC Negative (Negative); Cocaine Screen,Urine Negative (Negative); METHADONE URINE SCREEN Positive (Negative); OPIATES URINE SCREEN Negative (Negative)
[2022-06-17 09:57] LABS: Tricyclic Antidepressants Negative (Negative)
[2022-06-17] MEDS: THIAMINE 500 MG in Normal Saline 100 ML 200 MG IVPB ×2 (10:13→17:29)
--- NOTE | 2022-06-17 10:54 | INITIAL_ITS ---
- If Service Date Differs Date of service: 06/17/22 Time of Service: 10:54 Care Management Initial Assess REASON FOR HOSPITALIZATION:: Acute pancreatitis PAST MEDICAL HISTORY/PAST SURGICAL HISTORY:: All Active Problems (Updated 06/17/22 @ 06:17 by Frank Akins). Discharge planning issues (Acute). DVT prophylaxis (Acute). Nicotine vapor product user (Acute). Alcohol use (Acute). Chest wall pain (Acute). Elevated LFTs (Acute). Acute pancreatitis (Acute). Medical History (Updated 06/17/22 @ 06:17 by Frank Akins). GERD (gastroesophageal reflux disease). Hypertension. Opioid use disorder, moderate, in sustained remission, dependence. Surgical History (Updated 06/17/22 @ 06:04 by Frank Akins). Status post amputation of finger of right hand PREVIOUS FUNCTIONAL STATUS/SOCIAL/FAMILY SUPPORTS:: Israel lives in a single [facility] home in [place] with his guadalupe Stern and 11 year old daughter Briana. 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 Israel is independent at baseline and does not receive any community services. CURRENT FUNCTIONAL STATUS:: Israel was reclining in bed when CM met with him. He was polite and agreeable to conversation. Israel stated that he is feeling somewhat better than yesterday. He shared that his pain is pretty well controlled with medication and denied nausea and vomiting. His admitting diagnosis was pancreatitis as the CT scan of his abdomen was consistent with that diagnosis, however his lipase remains normal. In light of that, the provider has ordered additional diagnostic testing, to rule out other etiologies. CM discussed Israel's alcohol consumption with him. He freely admitted that he knows he drinks too much and should address the issue. CM discussed the support and services that the [facility] can provide and asked if he would be agreeable to meeting with someaneesh. Israel stated that he will consider it before discharge. ADVANCE DIRECTIVES:: none on file Has patient been provided with info about the portal/API?: Yes Did the patient sign up for the portal?: No CODE STATUS:: Full Code INSURANCE COVERAGE / FINANCIAL ISSUES:: Medicaid CURRENT HOME/COMMUNITY SERVICES/EQUIPMENT:: none PRIMARY CARE PHYSICIAN:: Dixon Sewell POTENTIAL DISCHARGE NEEDS:: possible substance use treatment PATIENT/FAMILY EDUCATION NEEDS:: Review of discharge instructions, limitations, substance use supports and services, follow up plan, discuss [facility] [employer] TRANSPORTATION:: via private vehicle with family PLAN:: Israel will likely be diascharged home with no new services. He will follow up with his PCP and plan of care and transport with family. CM will continue to offer support to Israel and assess for discharge needs.
[2022-06-17 11:02] VITALS: BP 156/93; PULSE 60; RESP 17; TEMP 37.7; O2SAT 97
[2022-06-17 11:45] LABS: Magnesium 1.7 mg/dL (1.8-2.4)
[2022-06-17 12:27] LABS: Lipase 42 U/L (16-77)
[2022-06-17 12:31] LABS: ALT 68 U/L (16-63); AST 28 U/L (15-37); Albumin 3.4 g/dL (3.4-5.0); Alkaline Phosphatase 92 U/L (46-116); Anion Gap 6.9 mmol/L (3-11); BUN 14 mg/dL (7-18); Bilirubin, Direct 0.3 mg/dL (0.0-0.2); Bilirubin, Total 0.8 mg/dL (0.2-1.0); CO2 29.1 mmol/L (21.0-32.0); CREATININE 1.1 mg/dL (0.70-1.30); Calcium 8.5 mg/dL (8.5-10.1); Chloride 103 mmol/L (98-107); Estimated GFR 85.95 (mL/min/1.73m2); Glucose 84 mg/dL (74-106); Potassium 3.7 mmol/L (3.5-5.1); Sodium 139 mmol/L (136-145); Total Protein 6.8 g/dL (6.4-8.2)
--- NOTE | 2022-06-17 13:07 | W.PM.PROGNOT ---
Date of Service Date of service: 06/17/22 Time of Service: 13:08 Assessment and Plan Assessment and plan (1) Acute pancreatitis: Status: Suspected Assessment and plan: I do not agree with a diagnosis of acute pancreatitis given that his lipase remains normal. CT scan shows edema of the pancreatic head. I suspect that this is referred inflammation from a duodenitis. However will obtain MRCP to ensure that there is no mass of the duodenum or pancreatic head. Continue n.p.o. status IV fluid hydration IV narcotics and antiemetics. If he is not improving will recommend EGD or even referral to GI for endoscopic ultrasound. We will add Carafate along with his Protonix. Professional time spent interviewing and examining patient, discussion of goals of care with hospital team (care management, nursing and consulting professionals) was 30 minutes. (2) Alcohol use: Status: Acute Assessment and plan: Heavy alcohol use of at least 5 twisted teas at night. He is at high risk for going through withdrawal although no prior history of acute alcohol withdrawal. We will monitor with CIWA scoring but hold off on prophylactic benzodiazepines or phenobarbital. (3) Elevated LFTs: Status: Acute Assessment and plan: Hepatitis screening and HIV screening ordered by the admitting hospitalist.Repeat transaminases are improving with abstinence of alcohol overnight. Transaminases have nearly normalized. (4) Hypertension: Assessment and plan: Mildly elevated now, holding lisinopril. Can consider ARB or CCB as those may be less associated with pancreatitis than REYNALDO inhibitor, but I don't think this was the cause. (5) Opioid use disorder, moderate, in sustained remission, dependence: Assessment and plan: Continue home methadone. Recognize his tolerance may necessiate higher dosing of opioids if opioid pain medication needed. As such I have increased the dose and frequency of his IV Dilaudid. I did add ketorolac to his regimen but in light of probable peptic ulcer disease of stop the ketorolac (6) Nicotine vapor product user: Status: Acute Assessment and plan: offer nicotrol prn (7) DVT prophylaxis: Status: Acute Assessment and plan: low risk, consider starting if stays here 2-3 days. (8) Discharge planning issues: Status: Acute Assessment and plan: stable currently, consider home once pain improving and progressing diet. Subjective Subjective Interval history since last seen: Patient continues with epigastric abdominal pain no nausea or vomiting. No diarrhea. CT scan of the abdomen pelvis demonstrated pancreatic edema at the head of the pancreas. No abscess or phlegmon. Repeat lipase remains normal. Repeat labs today show magnesium 1.7 total bilirubin 0.8 with a conjugated bilirubin of 0.3. AST is down to 28 ALT is 68 and alkaline phosphatase is normal at 92. I suspect he probably is suffering from alcoholic gastritis. However he has right upper quadrant as well as epigastric pain. We will obtain MRCP to make sure there is no mass of the pancreatic head as well as rule out obstructive cause but I suspect that his pain is probably due to peptic ulcer disease or alcoholic gastritis. We will add Carafate to his regimen and we have increased his Protonix to twice a day. If he is not improving we will ask surgery to take a look at him to consider EGD. Exam Narrative Exam Narrative: Middle-aged white male who is alert and oriented person place time circumstance lying in bed in no acute distress. He was actually sleeping when I walked in the room. He says that since he was medicated is the best his abdomen is felt. He understands that alcohol is a cause of his problems. He admits that he will frequently get dyspepsia and occasionally wake up at night with bile reflux. Abdomen obese soft no guarding or rebound tenderness he has epigastric and right upper quadrant abdominal pain with deep palpation. Bowel sounds are present although hypoactive Objective Last Vital Signs Temp 37.7 C H 06/17/22 11:02 Pulse 60 06/17/22 11:02 Resp 17 06/17/22 11:02 BP 156/93 H 06/17/22 11:02 Pulse Ox 97 06/17/22 11:02 Laboratory Results - last 24 hr 06/17/22 06/17/22 06/17/22 02:34 02:34 02:34 WBC 9.89 RBC 4.39 Hgb 14.0 Hct 41.5 MCV 95 MCH 31.9 MCHC 33.7 RDW 12.2 Plt Count MPV 10.5 Immature Gran % 0.4 Neutrophils % 74.0 Lymphocytes % 17.7 Monocytes % 6.9 Eosinophils % 0.8 Basophils % 0.2 Nucleated RBC % 0.0 Absolute Neutrophils 7.32 H Absolute Lymphocytes 1.75 Absolute Monocytes 0.68 Absolute Eosinophils 0.08 Absolute Basophils 0.02 RBC Morphology Normal VBG Lactate 1.7 H Sodium 137 Potassium 4.5 Chloride 101 Carbon Dioxide 28.0 Anion Gap 8.0 BUN 16 Creatinine 1.0 Est GFR (CKD-EPI 2020) 96.37 Glucose 106 Calcium 9.5 Magnesium Total Bilirubin 0.7 Conjugated Bilirubin AST 45 H ALT 86 H Alkaline Phosphatase 103 Total Protein 8.0 Albumin 4.1 Lipase 47 Urine Color Urine Clarity Urine pH Ur Specific Runge Urine Protein Urine Ketones Urine Blood Urine Nitrite Urine Bilirubin Urine Urobilinogen Ur Leukocyte Esterase Urine Glucose Urine Opiates Screen Urine Methadone Screen Ur Barbiturates Screen Ur Tricyclics Screen Ur Amphetamines Screen U Benzodiazepines Scrn Urine Cocaine Screen Ur THC Screen Ethyl Alcohol < 3.0 COVID-19 Source SARS-CoV-2 (PCR) Influenza Type A (PCR) Influenza Type B (PCR) RSV (PCR) 06/17/22 06/17/22 06/17/22 02:44 07:00 07:20 WBC RBC Hgb Hct MCV MCH MCHC RDW Plt Count MPV Immature Gran % Neutrophils % Lymphocytes % Monocytes % Eosinophils % Basophils % Nucleated RBC % Absolute Neutrophils Absolute Lymphocytes Absolute Monocytes Absolute Eosinophils Absolute Basophils RBC Morphology VBG Lactate Sodium Potassium Chloride Carbon Dioxide Anion Gap BUN Creatinine Est GFR (CKD-EPI 2020) Glucose Calcium Magnesium Total Bilirubin Conjugated Bilirubin AST ALT Alkaline Phosphatase Total Protein Albumin Lipase Urine Color Yellow Urine Clarity Clear Urine pH 7.0 Ur Specific Runge 1.010 Urine Protein Negative Urine Ketones Negative Urine Blood Negative Urine Nitrite Negative Urine Bilirubin Negative Urine Urobilinogen 0.2 Ur Leukocyte Esterase Negative Urine Glucose Negative Urine Opiates Screen Negative Urine Methadone Screen Positive A Ur Barbiturates Screen Negative Ur Tricyclics Screen Negative Ur Amphetamines Screen Negative U Benzodiazepines Scrn Negative Urine Cocaine Screen Negative Ur THC Screen Negative Ethyl Alcohol COVID-19 Source Nasopharynx SARS-CoV-2 (PCR) Negative Influenza Type A (PCR) Negative Influenza Type B (PCR) Negative RSV (PCR) Negative 06/17/22 06/17/22 06/17/22 11:20 11:20 11:20 WBC RBC Hgb Hct MCV MCH MCHC RDW Plt Count MPV Immature Gran % Neutrophils % Lymphocytes % Monocytes % Eosinophils % Basophils % Nucleated RBC % Absolute Neutrophils Absolute Lymphocytes Absolute Monocytes Absolute Eosinophils Absolute Basophils RBC Morphology VBG Lactate Sodium 139 Potassium 3.7 Chloride 103 Carbon Dioxide 29.1 Anion Gap 6.9 BUN 14 Creatinine 1.1 Est GFR (CKD-EPI 2020) 85.95 Glucose 84 Calcium 8.5 Magnesium 1.7 L Total Bilirubin 0.8 Conjugated Bilirubin 0.3 H AST 28 ALT 68 H Alkaline Phosphatase 92 Total Protein 6.8 Albumin 3.4 Lipase 42 Urine Color Urine Clarity Urine pH Ur Specific Runge Urine Protein Urine Ketones Urine Blood Urine Nitrite Urine Bilirubin Urine Urobilinogen Ur Leukocyte Esterase Urine Glucose Urine Opiates Screen Urine Methadone Screen Ur Barbiturates Screen Ur Tricyclics Screen Ur Amphetamines Screen U Benzodiazepines Scrn Urine Cocaine Screen Ur THC Screen Ethyl Alcohol COVID-19 Source SARS-CoV-2 (PCR) Influenza Type A (PCR) Influenza Type B (PCR) RSV (PCR) PAWSS Have you Been Recently Intoxicated or Drunk Within the Last 30 days?: Yes Have you Ever Experienced Previous Episodes of Alcohol Withdrawal?: No Have you ever Experienced Withdrawal Seizures?: No Have you ever Experienced Delirium Tremens(DT)s?: No Have you ever undergone Alcohol Rehabilitation Treatment (i.e, inpt ot outpatient treatment programs)?: No Have you ever Experienced Blackouts?: No Have you ever Combined Alcohol with other Downers within the last 90 days?: No Have you ever Combined Alcohol with any other Substance of Abuse during the last 90 days?: No Positive Blood Alcohol level on Presentation? [PCS.BAL]: No Evidence of Increased Autonomic Activity (i.e. HR>120, tremor, sweating, agitation, nausea)?: No Result: 1 Time Spent with Patient Time Spent with Patient: 25-34 minutes Time was spent: preparing to see the patient(eg.review tests), obtaining and/or reviewing separately otained hiistory, ordering medications,tests, procedures, referring, communicating with other health infant childcare provider (Discussion with Dr. Akins), indepentently interpreting results, counseling the patient and care coordination
[2022-06-17] MEDS: HYDROmorphone 2 MG/ML SYR IVP ×4 (14:42→23:30)
[2022-06-17 17:09] LABS: Abs Immature Grans 0.02 10^3/uL (0.0-0.06); Absolute Basophil Count 0.02 10^3/uL (0.0-0.2); Absolute Lymphocyte Count 1.26 10^3/uL (1.2-3.4); Absolute Monocyte Count 0.51 10^3/uL (0.1-0.8); Absolute Neutrophil Count 5.39 10^3/uL (1.2-6.7); Basophils % 0.3; Eosinophils % 1.4; HCT 35.8 % (40.0-50.0); HGB 12.2 g/dL (13.5-17.5); Immature Grans % 0.3; Lymphocytes % 17.3; MCH 32.3 pg (27.0-33.0); MCHC 34.1 % (32.0-36.0); MCV 95 fL (80-95); MPV 9.3 fL (8.0-11.0); Neutrophils % 73.7; Platelet Count 142 10^3/uL (130-400); RBC 3.78 10^6/uL (4.36-5.78); RDW 12.2 % (11.8-14.1); RDW-SD 42.5 fL
[2022-06-17] MEDS: Sucralfate 1 GM TAB PO ×2 (17:29→23:30)
[2022-06-17 22:16] VITALS: BP 147/86; PULSE 82; RESP 16; TEMP 37.5; O2SAT 98
[2022-06-17] MEDS: POTASSIUM CHLORIDE/D5-0.45NACL 1,000 ML 125 MEQ IV (23:10)
[2022-06-18] MEDS: HYDROmorphone 2 MG/ML SYR IVP ×2 (02:09→05:23)
[2022-06-18] MEDS: THIAMINE 500 MG in Normal Saline 100 ML 200 MG IVPB ×2 (02:10→10:45)
[2022-06-18 03:40] VITALS: BP 158/91; PULSE 55; RESP 20; TEMP 37.1; O2SAT 98
[2022-06-18] MEDS: ACETAMINOPHEN 1,000 MG/100 ML BTL 400 MG IVPB ×3 (03:41→16:23)
[2022-06-18] MEDS: Sucralfate 1 GM TAB PO ×2 (05:24→11:43)
[2022-06-18] MEDS: POTASSIUM CHLORIDE/D5-0.45NACL 1,000 ML 125 MEQ IV (07:08)
[2022-06-18 07:10] LABS: Magnesium 1.8 mg/dL (1.8-2.4)
[2022-06-18 07:29] VITALS: BP 170/99; PULSE 65; RESP 17; TEMP 37.2; O2SAT 98
[2022-06-18] MEDS: Pantoprazole 40 MG VIAL IVP (08:04)
[2022-06-18] MEDS: Normal Saline Flush 10 ML SYR IVP (08:04)
[2022-06-18] MEDS: Methadone Liquid 10 MG/ML 80 MG PO (08:04)
--- NOTE | 2022-06-18 09:00 | PDOC.CMPRO ---
- If Service Date Differs Date of service: 06/18/22 Time of Service: 09:00 Care Management Progress Note S/O:Israel was sitting up on the side of the bed when CM met with him. He stated that he is starting to feel a lot better. His pain has been well controlled with IV Acetaminophen and he is tolerating a liquid diet. His diet will be advanced for dinner. Israel remains afebrile and is saturating in the high 90s on room air. A chest xray was done today which revealed bilateral lower lobe pneumonia. He is not coughing and, per nursing, his lungs are clear. Earlier in the admission Israel had elevated LFTs but those have returned to normal. He verbalized that he hopes to be ready for discharge soon. A: Israel is a 41 year old man admitted on 06/17/22 with pancreatitis P:Israel will likely be discharged home with no new services. He will follow up with his PCP and plan of care and transport with family. CM will continue to offer support to Israel and assess for discharge needs.
[2022-06-18] MEDS: Lisinopril 10 MG TAB PO (09:04)
[2022-06-18 09:53] LABS: HIV-1/2 Ag & Ab Screen Negative (Negative)
[2022-06-18 09:59] LABS: HBs Antibody, Qual Positive (See Note); HBs Antibody, Quant 20.9 mIU/mL (See Note); Hepatitis B Core Antibody Negative (Negative); Hepatitis B surface Ag Negative (Negative); Hepatitis C Ab w Rflx HCV PCR Negative (Negative)
[2022-06-18 10:13] LABS: ALT 50 U/L (16-63); AST 19 U/L (15-37); Albumin 3.1 g/dL (3.4-5.0); Alkaline Phosphatase 82 U/L (46-116); Anion Gap 5.2 mmol/L (3-11); BUN 11 mg/dL (7-18); Bilirubin, Total 0.6 mg/dL (0.2-1.0); CO2 27.8 mmol/L (21.0-32.0); Calcium 8.7 mg/dL (8.5-10.1); Chloride 104 mmol/L (98-107); Estimated GFR 96.37 (mL/min/1.73m2); Glucose 115 mg/dL (74-106); Lipase 41 U/L (16-77); Potassium 3.7 mmol/L (3.5-5.1); Sodium 137 mmol/L (136-145); Total Protein 6.8 g/dL (6.4-8.2)
[2022-06-18 11:09] VITALS: BP 151/81; PULSE 60; RESP 16; TEMP 36.9; O2SAT 96
[2022-06-18 11:53] LABS: Abs Immature Grans 0.02 10^3/uL (0.0-0.06); Absolute Basophil Count 0.02 10^3/uL (0.0-0.2); Absolute Eosinophil Count 0.14 10^3/uL (0.0-0.7); Absolute Lymphocyte Count 1.51 10^3/uL (1.2-3.4); Absolute Monocyte Count 0.54 10^3/uL (0.1-0.8); Basophils % 0.3; Eosinophils % 1.9; HCT 34.9 % (40.0-50.0); HGB 11.9 g/dL (13.5-17.5); Immature Grans % 0.3; Lymphocytes % 20.9; MCH 32.8 pg (27.0-33.0); MCHC 34.1 % (32.0-36.0); MCV 96 fL (80-95); MPV 9.9 fL (8.0-11.0); Monocytes % 7.5; Neutrophils % 69.1; Platelet Count 142 10^3/uL (130-400); RBC 3.63 10^6/uL (4.36-5.78); RDW 12.2 % (11.8-14.1); RDW-SD 42.7 fL; WBC 7.23 10^3/uL (4.4-10.8)
--- NOTE | 2022-06-18 13:16 | DI.RAD_ITS ---
Exam(s) XR CHEST 2V PA LATERAL EXAM: XR CHEST 2V PA LATERAL CLINICAL HISTORY: infiltrates seen on MRI; r/o pneumonia TECHNIQUE: 2D digital imaging was performed of the chest. Two images were obtained. PA and lateral views were obtained. COMPARISON: CT CT ABDOMEN PELVIS W from 06/17/2022 MR MR ABDOMEN WO from 06/17/2022 FINDINGS: MEDIASTINUM: Normal. HEART: Normal. PULMONARY VASCULATURE: Normal. LUNGS: There is a ground-glass infiltrate seen in the right lower lobe. There also now appears to be an infiltrate in the left base medially. PLEURAL SPACE: No pleural effusion or pneumothorax. BONE:Within normal limits for the patient's age. OTHER FINDINGS:Normal. IMPRESSION: Bilateral lower lobe pneumonia. DATA REPOSITORY: RADIATION DOSE DELIVERED:
[2022-06-18 15:00] VITALS: BP 154/91; PULSE 72; RESP 16; TEMP 37.9; O2SAT 96
--- NOTE | 2022-06-18 15:40 | PHA.REVIEW2 ---
Pharmacy Admission Review - Admission Clinical Review (Last Updated 06/17/22 @ 06:04 by Frank Akins) Discharge planning issues (Acute) DVT prophylaxis (Acute) Nicotine vapor product user (Acute) Alcohol use (Acute) Elevated LFTs (Acute) codeine Allergy (Unverified 07/23/20 16:18) Itching Resuscitation Status Full Code Height 5 ft 10 in Weight 103.011 kg - Renal Dosing Renal Dosing: BUN 11 mg/dL (7-18) 06/18/22 08:26 Creatinine 1.0 mg/dL (0.70-1.30) 06/18/22 08:26 Medications needing adjustments: Reviewed (crcl = 115. no adjustments needed) - Anticoagulation Anticoagulation: Hgb 11.9 g/dL (13.5-17.5) L 06/18/22 06:20 Hct 34.9 % (40.0-50.0) L 06/18/22 06:20 Plt Count 142 10^3/uL (130-400) 06/18/22 06:20 Creatinine 1.0 mg/dL (0.70-1.30) 06/18/22 08:26 DVT Prophylaxis: N/A (pt is low risk for DVT, consider initiating prophylaxis if he is here more than a few days) Therapeutic Anticoagulation: N/A - Opiate Usage Evaluate Pain Scale/Pains Meds: N/A (hydromorphone q3hprn. on methadone 80 mg daily ([facility])) - Relevant Labs Sodium 137 mmol/L (136-145) 06/18/22 08:26 Potassium 3.7 mmol/L (3.5-5.1) 06/18/22 08:26 Chloride 104 mmol/L (98-107) 06/18/22 08:26 Magnesium 1.8 mg/dL (1.8-2.4) 06/18/22 06:20 Electrolytes, C-Reactive P, ESR: Reviewed - DM Control DM Control: Glucose 115 mg/dL (74-106) H 06/18/22 08:26 DM Control: N/A - Cardiac Review BP, HR, EF%: Reviewed - Qtc Review QTc: N/A - IV to PO Switch IV Medications: Reviewed (protonix IV, thiamine IV - switch to PO when able. pt states IV tylenol works well for him, continue for now) - Home Meds Home Med List reviewed: Reviewed (on methadone 80 mg daily (gets take-homes from [facility])) - Current meds Current Medication Order Review: Reviewed
[2022-06-18 16:23] VITALS: TEMP 37.9
--- NOTE | 2022-06-18 16:57 | W.PM.DS.N ---
Date of service: 06/18/22 Time of Service: 16:57 DS: Diagnosis Discharge Diagnosis (1) Acute pancreatitis: Status: Suspected Asessment and Plan: Patient presented to the E.D. w/ symptoms of epigastric abdominal pain, nauseas, biliary reflux at night and some fever and chills. No dyspnea or sputum production. Workup in the E.D. include labs including CMP, lipase, CBC, Fluvid nasal PCR for influenza, SARS-COV2 and RSV. Fluvid was negative. CMP demonstrated mild transaminitis w/ AST 45 and ALT 85, normal bilirubin 0.7 and normal alkaline phosphatase 103 and normal lipase 47. CBC was unremarkable. Blood alcohol was <3 and UDS screen positive for methadone. UA was unremarkable. CT of abdomen and pelvis demonstrated inflammation of the head of the pancreas but no cyst, no ductal dilatation or stone and no mass. Subsequent MRCP was performed and again demonstrated edema of the pancreatic head but otherwise no cyst, abscess, phlegmon or stones or ductal dilatation. However incidental finding included infiltrates of the RLL and RML. Subsequent CXR confirmed infiltrates of the RLL and now also LLL. Patient was treated w/ analgesic, antiemetics, iv fluids and he was made NPO at first. His diet was reintroduced to clear liquids then advanced to full liquids and some soft foods. He tolerated this diet. His pain was controlled w/ Tylenol and he was put on protonix 40 mg bid along w/ carafate 1 gm ac & hs. He was discharged home on a regimen of omeprazole 40 mg bid along w/ carafate 1 gm AC/HS. He was also put on Augmentin empirically for what was probably aspiration pneumonia. He is to get follow up CXR in 10 to 14 days. He was referred to Dr. Wendie Cardenas to follow up as outpatient to get an EGD to rule out alcoholic gastritis/duodenitis or PUD. Patient was strongly encouraged to refrain from any further alcohol consumption. His lipases were repeated and remains normal. (2) Pneumonia: Status: Acute Asessment and Plan: subclinical pneumonia. no sx of cough, dyspne, hypoxemia or sputum production. Likely developed from bile reflux aspiration and atelectasis from his abdominal pain. Patient pneumonic infiltrates were discovered on his abdominal MRI and confirmed w/ CXR. Patient was discharged on 5 day course of Augmentin 875 mg bid. Order for follow up CXR to be done in 10 to 14 days. (3) Alcohol use: Status: Acute Asessment and Plan: patient was monitored w/ CIWA scoring and given supplemental vitamins and magnesium but never experienced acute alcohol withdrawal symptoms. Patient was advised to refrain from any future use of alcohol. He was advised that this his symptoms and his prognosis from recurrent pancreatitis is directly related to any further alcohol consumption. (4) Elevated LFTs: Status: Resolved Asessment and Plan: His admission transaminases were elevated w/ AST 45, ALT 86, but normal alkaline phosphatase 103 and normal total bilirubin 0.7. His transaminases resolved to normal at discharge w/ AST 19 and ALT 50. His lipase (5) Hypertension: Asessment and Plan: patient's lisinopril was initially witheld on admisson out of concern for lisnopril induced pancreatitis but later his lisinopril was reintroduced when his lipase remained normal. His acute inflammation of his pancreas is directly due to his alcohol consumption. (6) Opioid use disorder, moderate, in sustained remission, dependence: Asessment and Plan: patient will remain on his current dose of methadone. (7) Nicotine vapor product user: Status: Acute Discharge Plan Disposition Patient Disposition: Home Condition: Improving Discharge Details Reason For Visit: Pancreatitis Admit Date/Time: 06/17/22 04:15 Admit Provider: Frank Akins Attending Provider: Frank Akins Primary Care Provider: Dixon Sewell V Home Meds and New Rx's Prescriptions: New sucralfate [Carafate] 1 gram tablet 1 g PO QACHS Qty: 120 0RF omeprazole 40 mg capsule,delayed release(DR/EC) 40 mg PO BID Qty: 60 0RF prochlorperazine maleate [Compazine] 5 mg tablet 5 mg PO BID PRNQty: 10 0RF amoxicillin-pot clavulanate 875-125 mg tablet 1 tab PO BID Qty: 10 0RF Continued methadone 10 mg/mL Concentrate 80 mg PO DAILY lisinopril 10 mg Tablet 10 mg PO DAILY Discharge Instructions Instructions: Sucralfate (By mouth), Omeprazole (By mouth), Amoxicillin/Clavulanate Potassium (By mouth), Pancreatitis (DC), Diet for Stomach Ulcers and Gastritis (GEN), Aspiration Pneumonia (DC) Additional Instructions: Discontinue all use of alcohol. You probably have an ulcer or gastritis and duodenitis from chronic alcohol use. You need to cease any further consumption of alchool. Your CT scan demonstrated inflammation around the head of your pancreas although your labs did not show an elevation in your pancreatic enzyme, lipase. MRI of your abdomen did not show any abscess nor any obstruction of your pancreatic or bile ducts and there was no tumor or mass of the pancreas. You have been prescribed a higher dose of omeprazole 40 mg which you should take twice a day. You have also been prescribed sucralfate which should be taken before meals and at bedtime, total of 4 x per day. This medicine will coat the lining of your stomach and protect from ulcerations. You are being referred to one of our local surgeons, Dr. Wendie Cardenas to get set up for an EGD. EGD is also called upper endoscopy or esophagogastroduodenoscopy. This is a procedure that involves a small scope w/ fiberoptic camera that allows the surgeon to look inside your esophagus and stomach and duodenum. This procedure will allow us to make an accurate diagnosis and also to evaluate you for any chronic infection of the stomach and duodenum called Helicobacter pylori which is a common cause for stomach ulcers and a cause for stomach and pancreatic cancer. If you have Helicobacter pylori infection, then antibiotics to treat and irradicate this organism can promote healing of the stomach and duodenum and prevent stomach cancer. On your MRI of your abdomen, infiltrates were seen on the right lower lung and follow up chest xray also demonstrated infiltrates in both bases. This would suggest pneumonia. However you have had no fever and have not been coughing up sputum. Nevertheless, you may have aspirated contents from your stomach into your lungs while sleeping. Please try sleeping upright with your head at least at 45 to 60 degrees to prevent aspiration. Stand Alone Forms: Nursing Discharge Form Referrals: Wendie Cardenas DO [OSTEOPATHIC DOCTOR] - (Please call Wednesday to make an Appointment [phone]) Dixon Sewell V [Primary Care Provider] - (PLease call Wednesday and make an Appointment in the next 2 weeks ) Activity:: Activity as Tolerated Equipment/Supplies:: No Equipment Needed Diet:: ulcer diet Discharge Orders Discharge Orders: Discharge Order (Routine); Ordered 06/18/22 Ordered By: Alvarado Jensen Other Ambulatory Orders: XR chest 2V PA & lateral (Routine) Timeframe: 10 Day Location: None Selected Ordered By: Alvarado Jensen DS: Summary Time Spent with Patient providing and/or coordinating discharge services: Greater than 30 minutes Specific discharge activities: Interview/exam of patient; review of discharge instructions, completion of prescriptions/discharge instructions; discussion w/ nursing and CM; documentation of hospital visit Status at Discharge Functional status at discharge: independent ambulation Overall status at discharge: patient is progressing back to baseline Mental Status: mental status grossly normal Speech and Movement: speech and movement normal Mood: congruent mood Affect: normal affect Exam Narrative Exam Narrative: Israel is dressed sitting up at the bedside asking to return home. He says that he still has some residual epigastric pains but not severe and Tylenol seems to help this. He says that the dilaudid did not help as much as the Tylenol. He tolerated an advance in his diet at lunch Abdomen: soft, no guarding, mild tenderness w/ deep palpation. Psych Mental Status: mental status grossly normal Speech and Movement: speech and movement normal Mood: congruent mood Affect: normal affect DS: Data Vitals/I&O Vitals and I&O: Vital Signs Temperature 37.9 C H 06/18/22 16:23 Temperature Source Tympanic 06/18/22 15:00 Pulse 72 06/18/22 15:00 Pulse Rhythm Regular 06/18/22 08:00 Respiratory Rate 16 06/18/22 15:00 Respiratory Effort Normal, Non-Labored 06/18/22 08:00 Respiratory Depth Normal 06/18/22 08:00 Respiratory Pattern Normal 06/18/22 08:00 Blood Pressure 154/91 H 06/18/22 15:00 Pulse Oximetry 96 06/18/22 15:00 Oxygen Delivery Method Room Air 06/18/22 15:00 Oxygen Flow Rate 0 06/18/22 15:00 Pain Level 6 06/18/22 16:23 Intake & Output 06/17/22 06/18/22 06/18/22 23:59 11:59 23:59 Intake Total 305 / 1120 2300.833 / 3210.000 909.167 / 3210.000 Balance 305 / 670 2300.833 / 3210.000 909.167 / 3210.000 Weight 103.011 kg Intake: IV 305 / 1120 2300.833 / 3210.000 909.167 / 3210.000 Other: Urine Appearance Clear Voiding Methods Toilet Data Completed and Pending Labs on day of discharge: Labs from last 24 hours 06/18/22 06/18/22 06/18/22 08:26 06:20 06:20 WBC 7.23 RBC 3.63 L Hgb 11.9 L Hct 34.9 L MCV 96 H MCH 32.8 MCHC 34.1 RDW 12.2 Plt Count 142 MPV 9.9 Immature Gran % 0.3 Neutrophils % 69.1 Lymphocytes % 20.9 Monocytes % 7.5 Eosinophils % 1.9 Basophils % 0.3 Nucleated RBC % 0.0 Absolute Neutrophils 5.00 Absolute Lymphocytes 1.51 Absolute Monocytes 0.54 Absolute Eosinophils 0.14 Absolute Basophils 0.02 Sodium 137 Potassium 3.7 Chloride 104 Carbon Dioxide 27.8 Anion Gap 5.2 BUN 11 Creatinine 1.0 Est GFR (CKD-EPI 2020) 96.37 Glucose 115 H Calcium 8.7 Magnesium 1.8 Total Bilirubin 0.6 AST 19 ALT 50 Alkaline Phosphatase 82 Total Protein 6.8 Albumin 3.1 L Lipase 41 Hep Bs Antigen Hep Bs Antibody Hep Bs Antibody, Quant Hep B Core Total Ab Hepatitis C Antibody HIV 1&2 Ag/Ab, 4th Gen 06/17/22 06/17/22 06/17/22 16:55 11:20 11:20 WBC 7.30 RBC 3.78 L Hgb 12.2 L Hct 35.8 L MCV 95 MCH 32.3 MCHC 34.1 RDW 12.2 Plt Count 142 MPV 9.3 Immature Gran % 0.3 Neutrophils % 73.7 Lymphocytes % 17.3 Monocytes % 7.0 Eosinophils % 1.4 Basophils % 0.3 Nucleated RBC % 0.0 Absolute Neutrophils 5.39 Absolute Lymphocytes 1.26 Absolute Monocytes 0.51 Absolute Eosinophils 0.10 Absolute Basophils 0.02 Sodium Potassium Chloride Carbon Dioxide Anion Gap BUN Creatinine Est GFR (CKD-EPI 2020) Glucose Calcium Magnesium Total Bilirubin AST ALT Alkaline Phosphatase Total Protein Albumin Lipase Hep Bs Antigen Negative Hep Bs Antibody Positive Hep Bs Antibody, Quant 20.9 Hep B Core Total Ab Negative Hepatitis C Antibody Negative HIV 1&2 Ag/Ab, 4th Gen Negative Preliminary micro results at discharge 06/17/22 03:53 Blood Culture - Preliminary Blood NO GROWTH 24 HOURS 06/17/22 03:26 Blood Culture - Preliminary Blood NO GROWTH 24 HOURS PFSH All Active Problems (Updated 06/18/22 @ 17:34 by Alvarado Jensen MD) Pneumonia (Acute) Pancreatic abnormality (Acute) Discharge planning issues (Acute) DVT prophylaxis (Acute) Nicotine vapor product user (Acute) Alcohol use (Acute) Chest wall pain (Acute) Medical History GERD (gastroesophageal reflux disease) Hypertension Opioid use disorder, moderate, in sustained remission, dependence Surgical History Status post amputation of finger of right hand Social History Smoking/Tobacco Use Status: Current every day Tobacco Type: e-cigarettes Smoking risk assessment performed?: Yes Alcohol Intake: current Alcohol Intake frequency: a few times a week Alcohol type: other Counseling provided: provider counseling and reduce to 2 or less/day Drug use: Never Do you feel safe at home: Yes Do you feel safe in your relationship?: Yes Additional Social history: Lives with fiance and daughter. Works at [employer]service Time Spent with Patient Time Spent with Patient: <45 minutes Time was spent: preparing to see the patient(eg.review tests), obtaining and/or reviewing separately otained hiistory, ordering medications,tests, procedures, indepentently interpreting results, counseling the patient and care coordination
--- NOTE | 2022-06-18 17:20 | CHAPLAIN ---
Israel was sitting on the edge of his bed, dressed in his own clothes when I visited this morning. He said he's waiting to hear what's going from the hospitalist, but hoping to go home soon. He's been in touch with family. He was discharged later this afternoon.
== END 2022-06-18 17:28 | disposition home or self-care (01) | DRG 438 ==
LOC: ER 06:01 → MS 06:02
PROVIDERS: Internal Medicine; Admitting Provider Family Medicine; Emergency Provider Student in an Organized Health Care Education/Training Program; PCP Physician Assistant Medical; Visit Provider Family Medicine
DX: J69.0 Pneumonitis due to inhalation of food and vomit; K85.20 Alcohol induced acute pancreatitis without necrosis or infection; F11.20 Opioid dependence, uncomplicated; F10.90 Alcohol use, unspecified, uncomplicated; K21.9 Gastro-esophageal reflux disease without esophagitis; R07.89 Other chest pain; R74.01 Elevation of levels of liver transaminase levels; K29.20 Alcoholic gastritis without bleeding; K29.80 Duodenitis without bleeding; I10 Essential (primary) hypertension; F17.290 Nicotine dependence, other tobacco product, uncomplicated
CPT/HCPCS: 36415; 80048; 80053; 80076; 80307; 83690; 86704; 86706; 86803; 87040; 87340; 87389; 87637; 96365; 96367; 96375; 99285; 71046; 74177; 74181; 80320; 81003; 83605; 83735; 85025; 99239; J0131; J1170; J1885; J2543; J3490

== ENCOUNTER 2022-08-11 21:45 | Outpatient (REF) | payer MEDICAID, SELFPAY ==
[2022-08-11 19:44] LABS: HCT 37.3 % (40.0-50.0); HGB 12.4 g/dL (13.5-17.5); MCHC 33.2 % (32.0-36.0); MCV 96 fL (80-95); MPV 9.7 fL (8.0-11.0); Platelet Count 174 10^3/uL (130-400); RBC 3.88 10^6/uL (4.36-5.78); RDW 12.4 % (11.8-14.1); RDW-SD 43.5 fL; WBC 5.11 10^3/uL (4.4-10.8)
[2022-08-11 19:53] LABS: ALT 69 U/L (16-63); AST 42 U/L (15-37); Albumin 3.8 g/dL (3.4-5.0); Alkaline Phosphatase 123 U/L (46-116); Bilirubin, Direct 0.1 mg/dL (0.0-0.2); Bilirubin, Total 0.4 mg/dL (0.2-1.0); Lipase 40 U/L (16-77); Total Protein 7.5 g/dL (6.4-8.2)
== END 2022-08-11 21:46 | disposition home or self-care (01) ==
LOC: NCHCN 21:45
PROVIDERS: PCP Nurse Practitioner Family; Visit Provider Nurse Practitioner Family
DX: R10.9 Unspecified abdominal pain (principal); Z87.19 Personal history of other diseases of the digestive system
CPT/HCPCS: 80076; 83690; 85027

== ENCOUNTER 2022-08-12 15:07 | Outpatient (REF) | payer MEDICAID, SELFPAY ==
[2022-08-17 14:52] LABS: Helicobacter pylori Ag, Feces Negative (Negative)
== END 2022-08-12 15:08 | disposition home or self-care (01) ==
LOC: NCHCN 15:07
PROVIDERS: PCP Nurse Practitioner Family; Visit Provider Nurse Practitioner Family
DX: R10.9 Unspecified abdominal pain (principal)
CPT/HCPCS: 87338

== ENCOUNTER 2023-01-25 06:02 | Emergency (ER) | payer MEDICAID, SELFPAY ==
[2023-01-25 06:07] VITALS: BP 154/100; PULSE 81; RESP 14; TEMP 36.6; O2SAT 97
[2023-01-25 06:15] VITALS: BP 154/100; PULSE 80; RESP 14; TEMP 36.6; O2SAT 98
[2023-01-25 06:20] VITALS: RESP 14
--- NOTE | 2023-01-25 06:47 | W.ED.GENAD ---
Discharge Plan Disposition Patient Disposition: Home Condition: Improving Discharge Details Clinical Impression: Paronychia of great toe of left foot Primary Care Provider: Mariely Corbin ED Provider: Ajay Whaley Home Meds and New Rx's Prescriptions: New cephalexin 500 mg tablet 500 mg PO TID Qty: 30 0RF No Action methadone 10 mg/mL Concentrate 80 mg PO DAILY lisinopril 10 mg Tablet 10 mg PO DAILY sucralfate [Carafate] 1 gram tablet 1 g PO QACHS Qty: 120 0RF omeprazole 40 mg capsule,delayed release(DR/EC) 40 mg PO BID Qty: 60 0RF amoxicillin-pot clavulanate 875-125 mg tablet 1 tab PO BID Qty: 10 0RF Discharge Instructions Instructions: Paronychia (ED) Additional Instructions: Continue to soak your toe several times a day in warm water for 15 to 20 minutes. Spread the nail fold out where the infection is to allow any pus that is built up to drain out. You can rinse your toe after each soaking and then recover with the topical antibiotic ointment such as bacitracin or Neosporin and a roll gauze. You can take 2-3 200 mg ibuprofen tablets every 6 hours as needed for symptoms of pain or throbbing. You can take 2-3 325 mg acetaminophen tablets every 4-6 hours as needed for additional relief of pain or throbbing symptoms. Take 1 cephalexin capsule every 8 hours, 3 times a day, for the next 10 days. Your toe should slowly improve in redness, pain, and swelling. Follow-up with your regular primary care doctor for recheck and further management if needed. You can always return to the ER for any new concerns or sudden changes in your health which you feel require emergency medical attention. Medical Decision Making The patient was seen and examined. This appears to be a standard paronychia in the right great toe without any severe surrounding cellulitic change. Certainly there is no red streaking to suggest lymphangitis. The patient will have the paronychia drained here in the emergency room will be started on oral antibiotic therapy as a bridge to primary care follow-up for ongoing management needed. HPI General Date/Time Provider Initiated Documentation: 01/25/23 06:04. HPI Narrative: The patient is a 42-year-old male, with a past medical history significant for hypertension, GERD, and opioid misuse disorder currently on methadone, who presents to the emergency department this evening complaining of a red and swollen lateral left great toe near the nail fold, after trimming his nails approximately 5 days ago. The patient began to slowly develop increasing redness on the lateral aspect of the great toes nailbed. The patient began to soak the toe a few days ago but this has not seemed to improve the pain, increased redness, and increased warmth. The patient denies any fevers or chills. The patient denies any medical problems that would cause difficulty with healing such as diabetes, chronic steroid use, or immunosuppressive diseases. Related Data Home Medications Medication Instructions Recorded Confirmed methadone 10 mg/mL oral concentrate 80 mg PO DAILY 07/15/18 01/25/23 lisinopril 10 mg tablet 10 mg PO DAILY 06/17/22 01/25/23 amoxicillin 875 mg-potassium 1 tab PO BID #10 tabs 06/18/22 clavulanate 125 mg tablet omeprazole 40 mg capsule,delayed 40 mg PO BID #60 caps 06/18/22 01/25/23 release sucralfate 1 gram tablet (Carafate) 1 g PO QACHS #120 tabs 06/18/22 01/25/23 cephalexin 500 mg tablet 500 mg PO TID #30 tabs 01/25/23 Previous Rx's Medication Instructions Recorded amoxicillin 875 mg-potassium 1 tab PO BID #10 tabs 06/18/22 clavulanate 125 mg tablet omeprazole 40 mg capsule,delayed 40 mg PO BID #60 caps 06/18/22 release sucralfate 1 gram tablet (Carafate) 1 g PO QACHS #120 tabs 06/18/22 cephalexin 500 mg tablet 500 mg PO TID #30 tabs 01/25/23 Allergies Allergy/AdvReac Type Severity Reaction Status Date / Time codeine Allergy Itching Unverified 01/25/23 06:16 General Stated Complaint: [facility]Medical TERRY: 4 PFSH All Active Problems (Updated 01/25/23 @ 06:52 by Ajay Whaley MD) Paronychia of great toe of left foot (Acute) Pneumonia (Acute) Pancreatic abnormality (Acute) Nicotine vapor product user (Acute) Alcohol use (Acute) Chest wall pain (Acute) Medical History GERD (gastroesophageal reflux disease) Hypertension Opioid use disorder, moderate, in sustained remission, dependence Surgical History Status post amputation of finger of right hand Social History Smoking/Tobacco Use Status: Current every day Tobacco Type: e-cigarettes Smoking risk assessment performed?: Yes Alcohol Intake: current Alcohol Intake frequency: a few times a week Alcohol type: other Counseling provided: provider counseling and reduce to 2 or less/day Drug use: Never Do you feel safe at home: Yes Do you feel safe in your relationship?: Yes Additional Social history: Lives with fiance and daughter. Works at [employer]/service Exam Narrative Exam Narrative: There appears to be a paronychia on the left great toe with an area of erythema, induration with central softness measuring approximately 1.5 x 1 cm, just lateral to the skin thick fold of the lateral nail. There is some mild exudative discharge aggregating in the corner of the proximal nail near the lateral margin of the germinal matrix and cuticle. Course Vital Signs Vital signs: Vital Signs Temperature 36.6 C 01/25/23 06:07 Pulse 81 01/25/23 06:07 Respiratory Rate 14 01/25/23 06:07 Blood Pressure 154/100 H 01/25/23 06:07 Pulse Oximetry 97 01/25/23 06:07 Temperature 36.6 C 01/25/23 06:15 Temperature Source Oral 01/25/23 06:07 Pulse 80 01/25/23 06:15 Respiratory Rate 14 01/25/23 06:20 Respiratory Effort Normal, Non-Labored 01/25/23 06:20 Respiratory Depth Normal 01/25/23 06:20 Respiratory Pattern Normal 01/25/23 06:20 Blood Pressure 154/100 H 01/25/23 06:15 Blood Pressure Position Sitting 01/25/23 06:15 Pulse Oximetry 98 01/25/23 06:15 Oxygen Delivery Method Room Air 01/25/23 06:15 Pain Level 7 01/25/23 06:07 Procedures Abscess I/D Site: Foot Side (if applicable): Left Sedation/analgesia: None Local Anesthetic: Lidocaine 1% Amount of anesthesia used (mL): 2 Technique: Incised with #11 Blade Amount of fluid expressed (mL): 1 Irrigation: Yes Packing used?: None Complications: Pain
[2023-01-25] MEDS: Cephalexin 500 MG CAP PO (07:11)
[2023-01-25] MEDS: Ibuprofen 600 MG TAB PO (07:12)
== END 2023-01-25 07:17 | disposition home or self-care (01) ==
PROVIDERS: Emergency Provider Emergency Medicine Emergency Medical Services; PCP Nurse Practitioner Family
DX: L03.032 Cellulitis of left toe (principal)
CPT/HCPCS: 99282; 99283

== ENCOUNTER 2023-05-25 17:30 | Outpatient (REF) | payer MEDICAID, SELFPAY ==
[2023-05-25 18:37] LABS: MCH 31.7 pg (27.0-33.0); MCHC 33.3 % (32.0-36.0); MCV 95 fL (80-95); MPV 9.6 fL (8.0-11.0); Platelet Count 215 10^3/uL (130-400); RBC 4.73 10^6/uL (4.36-5.78); RDW 12.3 % (11.8-14.1); RDW-SD 42.5 fL; WBC 7.15 10^3/uL (4.4-10.8)
[2023-05-25 18:43] LABS: ALT 104 U/L (16-63); AST 60 U/L (15-37); Alkaline Phosphatase 110 U/L (46-116); Anion Gap 11.4 mmol/L (3-11); BUN 13 mg/dL (7-18); Bilirubin, Total 0.7 mg/dL (0.2-1.0); CO2 29.6 mmol/L (21.0-32.0); CREATININE 1.1 mg/dL (0.70-1.30); Calcium 9.5 mg/dL (8.5-10.1); Calculated LDL 148 mg/dL (<100); Chloride 100 mmol/L (98-107); Cholesterol 230 mg/dL (<200); Estimated GFR 85.42 (mL/min/1.73m2); Glucose 100 mg/dL (74-106); HDL Cholesterol 61 mg/dL (40-60); Potassium 4.1 mmol/L (3.5-5.1); Sodium 141 mmol/L (136-145); Total Protein 8.2 g/dL (6.4-8.2); Triglyceride 108 mg/dL (<150)
== END 2023-05-25 17:31 | disposition home or self-care (01) ==
LOC: NCHCN 17:30
PROVIDERS: PCP Nurse Practitioner Family; Visit Provider Nurse Practitioner Family
DX: I10 Essential (primary) hypertension (principal); D64.9 Anemia, unspecified
CPT/HCPCS: 80053; 80061; 85027

== ENCOUNTER 2024-11-20 20:49 | Emergency (ER) | payer BC, SELFPAY ==
[2024-11-20 20:51] VITALS: BP 146/91; PULSE 81; RESP 16; TEMP 37; O2SAT 97
--- NOTE | 2024-11-20 20:52 | ED.GENADUL_ITS ---
Discharge Plan Disposition Patient Disposition: Home Condition: Good Discharge Details Clinical Impression: Pancreatitis Primary Care Provider: Mariely Corbin ED Provider: Zaida Valladares Home Meds and New Rx's Prescriptions: No Action famotidine 20 mg tablet 20 mg PO DAILY hydrochlorothiazide 12.5 mg tablet 12.5 mg PO QAM methadone 10 mg/mL Concentrate 80 mg PO DAILY lisinopril 10 mg Tablet 10 mg PO DAILY omeprazole 40 mg capsule,delayed release(DR/EC) 40 mg PO BID Qty: 60 0RF Discharge Instructions Instructions: Acute pancreatitis Additional Instructions: Please call your primary care provider first thing in the morning to schedule a follow-up appointment with your PCP. Your workup today was significant for mild pancreatitis. I recommend that you follow a clear diet for the next 24 to 48 hours. When restarting diet, you may eat small, low-fat meals and gradually advance over 3 to 6 days as tolerated. It is very necessary that you avoid drinking alcohol. You may use Tylenol 650 mg and ibuprofen 600 mg every 8 hours as needed for discomfort. Return to emergency care if you develop new fever/chills, worsening abdominal pain, uncontrollable vomiting, or if you are very worried and need to be rechecked again immediately Referrals: Mariely Corbin [Primary Care Provider, Medicine] HPI General Date/Time Provider Initiated Documentation: 11/20/24 20:52 . HPI Narrative: Israel is a 44-year-old male who presents to the emergency department today for evaluation of intermittent left upper quadrant abdominal pain x 1 week. He initially noticed pain after eating. Describes pain as similar to previous pancreatitis episode, subsided with alcohol abstinence but returned upon resumption. Describes pain as dull. Denies fevers/chills, dizziness, recent illness, congestion, sore throat, coughing, chest pain, shortness of breath, nausea/vomiting, change in bowel/bladder function. Has been maintaining low-fat diet and abstaining from ETOH for the last 5 days (significantly decreased over the last 2.5 weeks, only drank 3 days). Also reports L upper back/thoracic pain with overexertion at work or prolonged standing, not associated with current abdominal pain. PMH significant for ETOH abuse, currently on methadone. He has been hospitalized for complicated pancreatitis in the past. Has not had a colonoscopy, is working with PCP to schedule endoscopy for acid reflux sx. Related Data Home Medications ?Medication ?Instructions ?Recorded ?Confirmed methadone 10 mg/mL oral concentrate 80 mg PO DAILY 11/20/24 lisinopril 10 mg tablet 10 mg PO DAILY 06/17/2210/24 omeprazole 40 mg capsule,delayed 40 mg PO BID #60 caps 06/18/22 11/20/24 release famotidine 20 mg tablet 20 mg PO DAILY 11/17/2410/24 hydrochlorothiazide 12.5 mg tablet 12.5 mg PO QAM 10/2411/20/24 Previous Rx's ?Medication ?Instructions ?Recorded omeprazole 40 mg capsule,delayed 40 mg PO BID #60 caps 06/18/22 release Allergies Allergy/AdvReac Type Severity Reaction Status Date / Time codeine Allergy Itching Unverified 11/20/24 21:05 General TERRY: 4 Exam Narrative Exam Narrative: General Appearance: Normal. Alert and oriented, no acute distress Vital signs: Within normal limits, mild hypertension noted, no tachycardia or fever Respiratory: Clear breath sounds bilaterally, no wheezes, rales, or rhonchi. Cardiovascular: Normal heart sounds, no murmurs or abnormalities. Gastrointestinal: Abdomen soft, nondistended, mild tenderness to lower abdomen with palpation. Normoactive bowel sounds. No CVA tenderness Back, Musculoskeletal: Normal shoulder range of motion, no tenderness to palpation. Skin: Warm and dry, no rash. Psychiatric: Normal. Medical Decision Making Initial Assessment: 44-year-old male with history of pancreatitis presenting with left upper quadrant pain. Differential Diagnosis includes was not limited to: Pancreatitis, complications of pancreatitis, gastritis, esophagitis, gastric ulcer, muscle strain, pneumonia, pleural effusion ED Course: - Physical examination performed. - Labs -CT abdomen/pelvis performed with contrast -Chest x-ray I independently interpreted the following tests: CBC reassuring, mild anemia noted (H&H 11.1/34.2, 15.0 / 45.0 on 05/26/23). Mildly elevated AST and ALT, 66 and 110. Magnesium and troponin unremarkable. CT abdomen/pelvis performed, notable for mild hazy fat stranding adjacent to the pancreatic tail, consistent with acute pancreatitis and hazy fat stranding in the small bowel mesentery of unknown etiology, possible edema versus inflammatory change. Clinical Impression: - Mild pancreatitis; as patient is able to tolerate p.o. without difficulty and pain is well-controlled with OTC medications, outpatient management with close PCP follow-up is appropriate Disposition: Reviewed discharge instruction with patient, including importance of colonoscopy and endoscopy scheduled with PCP, pancreatitis management, importance of good hydration, pain control, and and red flags indicating need for return to emergency care. He voices agreement plan of care. I did review the findings of hazy fat stranding and small bowel consistent with edema/inflammation, patient denies change in bowel function. Patient Education: Advised to abstain from alcohol. Maintain low-fat diet. No contraindication to consuming blueberries and raspberries. Avoid foods and beverages that exacerbate reflux symptoms. Patient consented to the use of [facility] Imaging Data Radiologic Study: Radiologist's impression: PROCEDURE INFORMATION: Exam: CT Abdomen And Pelvis With Contrast Exam date and time: 11/20/2024 9:56 PM Age: 44 years old Clinical indication: Abdominal pain; Localized; Left upper quadrant (luq); Luq pain, lower abd ttp TECHNIQUE: Imaging protocol: Computed tomography of the abdomen and pelvis with contrast. Radiation optimization: All CT scans at this facility use at least one of these dose optimization techniques: automated exposure control; mA and/or kV adjustment per patient size (includes targeted exams where dose is matched to clinical indication); or iterative reconstruction. Contrast material: OMNIPAQUE 350; Contrast volume: 100 ml; Contrast route: INTRAVENOUS (IV); COMPARISON: MR ABDOMEN WO 06/17/2022 3:36 PM FINDINGS: Lungs: Lung bases clear. Liver: Normal appearing liver. Gallbladder and biliary ducts: Gallbladder partially collapsed. No calcified gallstones seen. No biliary dilatation. Pancreas: Mild hazy fat st randing adjacent to the pancreatic tail in keeping with acute pancreatitis Spleen: Normal appearing spleen. Adrenal glands: Normal appearing adrenal glands. Kidneys and ureters: Normal appearing kidneys. No hydronephrosis. Stomach and bowel: No oral contrast. Stomach partially decompressed. Hazy fat stranding in the small bowel mesentery of the left mid abdomen, uncertain etiology but abnormal, images 30 8-60 of series 8 and 22-37 of series 4. No obvious small bowel wall thickening, foreign body, or extraluminal soft tissue gas demonstrated. No small bowel dilatation to suggest obstruction. Colon largely well evacuated of formed fecal material. No evidence of diverticulitis or colitis. Appendix: Normal appendix. Intraperitoneal space: Small amount of ascites in the deep pelvis. No free air. Vasculature: Normal caliber abdominal aorta. Lymph nodes: No pathologically enlarged mesenteric, retroperitoneal, or pelvic sidewall lymph nodes. Urinary bladder: Normal appearing urinary bladder. Reproductive: Normal-appearing prostate gland and seminal vesicles. Bones/joints: No acute fracture seen among the bones of the abdomen or pelvis. Soft tissues: Small fat containing ventral hernia at the umbilicus. IMPRESSION: 1. Mild hazy fat stranding surrounding the pancreatic tail in keeping with acute pancreatitis. 2. Hazy fat stranding in the small bowel mesentery of the left mid abdomen, uncertain etiology but abnormal. Edema and inflammatory change commonly produce this appearance. No obvious small bowel wall thickening, foreign body, or extraluminal soft tissue gas demonstrated. No small bowel dilatation to suggest obstruction. Clinical correlation and follow- up recommended Radiologic Study #2: Radiologist's impression: PROCEDURE INFORMATION: Exam: XR Chest Exam date and time: 11/20/2024 10:12 PM Age: 44 years old Clinical indication: Left-sided; L thoracic post chest wall pain TECHNIQUE: Imaging protocol: Radiologic exam of the chest. Views: 2 views. COMPARISON: CR XR CHEST 2V PA LATERAL 06/18/2022 1:17 PM FINDINGS: Lungs: No pulmonary consolidation is seen. Pleural spaces: No pleural effusion or pneumothorax is demonstrated. Heart/Mediastinum: The heart appears normal in size. Bones/joints: The visualized bony structures appear grossly intact, as seen. IMPRESSION: No active disease is seen in the chest [facility] All Active Problems (Updated 11/20/24 @ 23:07 by Zaida Gill) Pancreatitis (Chronic) Pneumonia (Acute) Pancreatic abnormality (Acute) Nicotine vapor product user (Acute) Alcohol use (Acute) Chest wall pain (Acute) Medical History Opioid use disorder, moderate, in sustained remission, dependence GERD (gastroesophageal reflux disease) Hypertension Surgical History Status post amputation of finger of right hand Social History Smoking/Tobacco Use Status: Current every day Tobacco Type: e-cigarettes Smoking risk assessment performed?: Yes Alcohol Intake: current Alcohol Intake frequency: 3 or more drinks per day Alcohol type: other Counseling provided: provider counseling and reduce to 2 or less/day Drug use: Never Substance use type: does not use Do you feel safe at home: Yes Do you feel safe in your relationship?: Yes
[2024-11-20 21:04] VITALS: BP 146/91; PULSE 81; RESP 16; TEMP 37; O2SAT 97
--- NOTE | 2024-11-20 21:15 | DI.RAD_ITS ---
Exam(s) XR CHEST 2V PA LATERAL EXAM: XR CHEST 2V PA LATERAL CLINICAL HISTORY: L thoracic post chest wall pain. TECHNIQUE: 2D digital imaging was performed. COMPARISON: CT CT ABDOMEN PELVIS W from 11/20/2024 FINDINGS: 2 views: Heart size is normal. The mediastinum is not widened. Lungs are clear. No infiltrates nor pleural effusions. IMPRESSION: No acute pulmonary findings. DATA REPOSITORY: RADIATION DOSE DELIVERED:
--- NOTE | 2024-11-20 21:15 | DI.CT_ITS ---
Exam(s) CT ABDOMEN PELVIS W EXAM: CT ABDOMEN PELVIS W CLINICAL HISTORY: LUQ pain, lower abd TTP. TECHNIQUE: Imaging Protocol: Axial computed tomography images with coronal and sagittal reformatted images were created and reviewed CONTRAST MATERIAL: Intravenous: Omnipaque-350 100cc Oral: None COMPARISON: CT CT ABDOMEN PELVIS W from 06/17/2022 FINDINGS: VISUALIZED LUNG BASES: No nodules nor pleural effusions evident. ABDOMEN: There is a small amount of ascites in the dependent aspect of the pelvis in this male patient. LIVER: There are no focal hepatic lesions evident. No dilated intrahepatic ducts. GALLBLADDER/BILIARY: No obvious gallbladder pathology. CBD is not dilated. PANCREAS: There is mild abnormal streaking around the pancreatic tail consistent with pancreatitis. The pancreatic duct is not dilated. There are no pancreatic masses nor pancreatic parenchymal calcifications. Pancreatic head appears unremarkable (was previously involved with pancreatitis on prior CT scan of May 2022). SPLEEN: Spleen is not enlarged. No obvious intrasplenic lesions. Splenic and portal veins are patent. ADRENALS: There are no significant adrenal masses. KIDNEYS:No cysts evident. No solid renal masses. No calculi nor hydronephrosis.. ABDOMINAL AORTA: Abdominal aorta is not enlarged. LYMPH NODES:There is no retroperitoneal nor paraaortic adenopathy. ABDOMINAL WALL: No evidence of significant anterior abdominal wall nor inguinal hernia. GI: No evidence of bowel obstruction. However, there is an abnormal streaking on the mesenteric side of some small bowel loops in left side of the abdomen and mild edema of the bowel wall at this level. There is no obvious mass. No obvious filling defects in the branches of the superior mesenteric artery feeding this region and no obvious thrombosis in the mesenteric veins at this level. There is no evidence of focal perforation. No mesenteric adenopathy evident. PELVIS: GI: The appendix is difficult to identify is a separate structure. There is, however, small amount of fluid in this region just below the cecum. Also small amount of fluid in the dependent aspect of the pelvis. Terminal ileum appears unremarkable. There is no significant sigmoid diverticular disease. LYMPH NODES: There is no intrapelvic nor inguinal adenopathy. REPRODUCTIVE: Prostate size normal. Seminal vesicles unremarkable. URINARY BLADDER: No calculi nor obvious masses evident OSSEOUS: No fractures and no significant osseous lesions. Sacroiliac joints appear unremarkable.. Some degenerative disc disease evident in the lower lumbar spine. There appears to be a unilateral pars defect on the left side of L5 vertebral body with mild anterolisthesis L5 upon S1. IMPRESSION: 1. There is mild streaking around the pancreatic tail consistent with pancreatitis. Pancreatic duct is not dilated. There is no pancreatic mass. Please note this patient had a prior bout of pancreatitis as seen on CT scan of May 2022. That predominately involved the pancreatic head (which appears unremarkable on today's CT scan). 2. There is some abnormal streaking in small bowel mesentery in left side of the abdomen which appears independent of the pancreatitis findings. This requires close follow-up. There is presently no evidence of focal perforation or bowel obstruction or obvious diverticulum nor mass in this bowel loop although the bowel wall does appear mildly edematous. The etiology of this significant abnormal finding is not evident on these images. Requires close follow-up with repeat CT scan after appropriate clinical interval. 3. There is a small amount of ascites in the dependent aspect of the pelvis and subjacent to the cecum. I suspect this is most probably related to the above findings. An abnormal appendix is not seen. Indeed, it is difficult to identify the appendix on this study and correlation with any prior history of appendectomy is recommended. 4. No evidence of acute diverticulitis. Preliminary virtual Radiology report was reviewed. RADIATION DOSE DELIVERED: 597.79mGy.cm Total DLP DATA REPOSITORY: All CT scans at this facility are submitted to the National Radiology Data Registry (NRDR) Dose Index Registry (DIR) with the [employer] ([employer]). RADIATION OPTIMIZATION: All CT scans at this facility use at least one of these dose optimization techniques: automated exposure control; mA and/or kV adjustment per patient size (includes targeted exams where dose is matched to clinical indication); or iterative reconstruction.
[2024-11-20 21:33] LABS: Glucose Negative (Negative)
[2024-11-20 21:50] LABS: HCT 34.2 % (40.0-50.0); HGB 11.1 g/dL (13.5-17.5); Immature Grans % 0.3 %; MCH 31.5 pg (27.0-33.0); MCHC 32.5 % (32.0-36.0); MCV 97 fL (80-95); MPV 8.7 fL (8.0-11.0); Platelet Count 245 10^3/uL (130-400); RBC 3.52 10^6/uL (4.36-5.78); RDW 11.8 % (11.8-14.1); RDW-SD 42.2 fL; WBC 6.95 10^3/uL (4.4-10.8)
[2024-11-20 21:51] LABS: Abs Immature Grans 0.02 10^3/uL (0.0-0.06)
[2024-11-20] MEDS: Omnipaque 350 MG/ML 100 ML BTL IJ (22:01)
[2024-11-20] MEDS: Normal Saline - Diluent 50 ML VIAL IJ (22:01)
[2024-11-20] MEDS: Normal Saline Flush 10 ML SYR IVP (22:02)
[2024-11-20 22:25] LABS: ALT 110 U/L (16-63); AST 66 U/L (15-37); Albumin 3.8 g/dL (3.4-5.0); Alkaline Phosphatase 77 U/L (46-116); Anion Gap 11.8 mmol/L (3-11); BUN 13 mg/dL (7-18); Bilirubin, Total 0.4 mg/dL (0.2-1.0); CO2 27.2 mmol/L (21.0-32.0); Calcium 9.5 mg/dL (8.5-10.1); Chloride 101 mmol/L (98-107); Estimated GFR 84.37 (mL/min/1.73m2); Glucose 92 mg/dL (74-106); Lipase 114 U/L (<78); Magnesium 2.0 mg/dL (1.8-2.4); Potassium 3.5 mmol/L (3.5-5.1); Sodium 140 mmol/L (136-145); Total Protein 7.8 g/dL (6.4-8.2)
[2024-11-20 22:31] LABS: Troponin I < 4 ng/L (<or=76)
--- NOTE | 2024-11-20 22:45 | DI.VRAD_ITS ---
PROCEDURE INFORMATION: Exam: XR Chest Exam date and time: 11/20/2024 10:12 PM Age: 44 years old Clinical indication: Left-sided; L thoracic post chest wall pain TECHNIQUE: Imaging protocol: Radiologic exam of the chest. Views: 2 views. COMPARISON: CR XR CHEST 2V PA LATERAL 06/18/2022 1:17 PM FINDINGS: Lungs: No pulmonary consolidation is seen. Pleural spaces: No pleural effusion or pneumothorax is demonstrated. Heart/Mediastinum: The heart appears normal in size. Bones/joints: The visualized bony structures appear grossly intact, as seen. IMPRESSION: No active disease is seen in the chest. Dictated and Authenticated by: Pedro Encarnacion MD. Orderin Veronica Cerda MD
--- NOTE | 2024-11-20 22:45 | DI.VRAD_ITS ---
PROCEDURE INFORMATION: Exam: CT Abdomen And Pelvis With Contrast Exam date and time: 11/20/2024 9:56 PM Age: 44 years old Clinical indication: Abdominal pain; Localized; Left upper quadrant (luq); Luq pain, lower abd ttp TECHNIQUE: Imaging protocol: Computed tomography of the abdomen and pelvis with contrast. Radiation optimization: All CT scans at this facility use at least one of these dose optimization techniques: automated exposure control; mA and/or kV adjustment per patient size (includes targeted exams where dose is matched to clinical indication); or iterative reconstruction. Contrast material: OMNIPAQUE 350; Contrast volume: 100 ml; Contrast route: INTRAVENOUS (IV); COMPARISON: MR ABDOMEN WO 06/17/2022 3:36 PM FINDINGS: Lungs: Lung bases clear. Liver: Normal appearing liver. Gallbladder and biliary ducts: Gallbladder partially collapsed. No calcified gallstones seen. No biliary dilatation. Pancreas: Mild hazy fat stranding adjacent to the pancreatic tail in keeping with acute pancreatitis Spleen: Normal appearing spleen. Adrenal glands: Normal appearing adrenal glands. Kidneys and ureters: Normal appearing kidneys. No hydronephrosis. Stomach and bowel: No oral contrast. Stomach partially decompressed. Hazy fat stranding in the small bowel mesentery of the left mid abdomen, uncertain etiology but abnormal, images 30 8-60 of series 8 and 22-37 of series 4. No obvious small bowel wall thickening, foreign body, or extraluminal soft tissue gas demonstrated. No small bowel dilatation to suggest obstruction. Colon largely well evacuated of formed fecal material. No evidence of diverticulitis or colitis. Appendix: Normal appendix. Intraperitoneal space: Small amount of ascites in the deep pelvis. No free air. Vasculature: Normal caliber abdominal aorta. Lymph nodes: No pathologically enlarged mesenteric, retroperitoneal, or pelvic sidewall lymph nodes. Urinary bladder: Normal appearing urinary bladder. Reproductive: Normal-appearing prostate gland and seminal vesicles. Bones/joints: No acute fracture seen among the bones of the abdomen or pelvis. Soft tissues: Small fat containing ventral hernia at the umbilicus. IMPRESSION: 1. Mild hazy fat stranding surrounding the pancreatic tail in keeping with acute pancreatitis. 2. Hazy fat stranding in the small bowel mesentery of the left mid abdomen, uncertain etiology but abnormal. Edema and inflammatory change commonly produce this appearance. No obvious small bowel wall thickening, foreign body, or extraluminal soft tissue gas demonstrated. No small bowel dilatation to suggest obstruction. Clinical correlation and follow-up recommended. Dictated and Authenticated by: Pedro Encarnacion MD. Orderin Veronica Cerda MD
[2024-11-20 23:09] LABS: Troponin I < 4 ng/L (<or=76)
[2024-11-20] MEDS: Ketorolac 15 MG/ML VIAL IVP (23:27)
[2024-11-20 23:35] VITALS: PULSE 76; RESP 16; O2SAT 98
== END 2024-11-20 23:55 | disposition home or self-care (01) ==
PROVIDERS: Emergency Provider Nurse Practitioner Family; PCP Nurse Practitioner Family
DX: K85.90 Acute pancreatitis without necrosis or infection, unspecified (principal); R10.12 Left upper quadrant pain; F10.90 Alcohol use, unspecified, uncomplicated; M54.6 Pain in thoracic spine
CPT/HCPCS: 99284; 99285; 96374; 36415; 80053; 83690; 71046; 74177; 81003; 83735; 84484; 85025; J1885; J3490